=== PATIENT | male | born 1935 | race Caucasian/White ===

== ENCOUNTER 2023-07-19 08:25 | Inpatient (IN) | payer OTHER, SELFPAY ==
[2023-07-18] VITALS (16 sets, daily range): BP systolic 111–181; BP diastolic 52–108; BMI 27.2
--- NOTE | 2023-07-18 06:40 | ED.CVA ---
History of Present Illness
General
Chief Complaint: CVA/TIA Symptoms
Source: patient and ambulance crew
Time Seen by Provider: 07/18/23 06:38
Onset of Stroke Symptoms
Onset of symptoms known: No
Time pt last seen normal is known: Yes
Date last time pt seen normal: 07/17/23
Time last time pt seen normal: 22:00
History of Present Illness
History of Present Illness:
88-year-old male brought to the emergency room by paramedics because he is feeling dizzy, weak on the left side and noted a facial droop. Patient went to bed at 10 PM last night feeling his baseline. He woke up at 3 AM feeling the above symptoms.
He went back to bed and when he awoke again this morning noted the symptoms were still present. Patient does take Plavix but does not take other oral anticoagulants.
Phy Exam
Physical Exam
Physical Exam:
General: Awake, Alert, Oriented X3. No acute distress.
Vitals: unremarkable
Head: Atraumatic
Eyes: Pupils equal, EOMI
Throat: Airway intact, no exudates
Neck: Trachea midline
Lungs: Clear and equal b/l
Heart: Regular rate, no murmurs
Abd: Soft, Nontender, No pulsatile mass
Neuro:left facial droop,
Skin: Warm, dry, no rash
Extremities: pulses equal b/l, no edema
Scores
NIH Stroke Score
Level of Consciousness: 0 - Alert
LOC Questions: 0-Answers both correctly
LOC Commands: 0-Performs both correctly
Best Horizontal Gaze: 0-Normal
Visual Bautista: 0=Normal, no visual loss
Facial Palsy: 2=Partial paralysis
Motor - Right Arm: 0=No drift 10 seconds
Motor - Left Arm: 0=No drift 10 seconds
Motor - Right Le-No drift 5 seconds
Motor - Left Le-No drift 5 seconds
Limb Ataxia: 0-Absent
Sensation: 0-Normal
Best Language: 0-No aphasia
Dysarthria: 0-Normal
Extinction and Inattention: 0-No abnormality
Total Score:: 2
Course
Orders/Labs/Results
Orders:
Orders
07/18/23 06:38
CT Head W/o Cont STROKE ALERT Urgent
Comment:
Reason For Exam: left sided weakness
CT Head/Neck Ang STROKE ALERT Urgent
Reason For Exam: left sided weakness
07/18/23 06:43
Cardiac Monitoring- Treatment ONCE
07/18/23 06:44
Electrocardiogram (*1) Stat
Reason for Study: Other
Other Reason for Exam: neuro symptoms
EKG- Treatment ONCE
07/18/23 07:09
Basic Metabolic Panel Urgent
Complete Blood Count/With Diff Urgent
Troponin I Urgent
07/18/23 08:13
Notify MD As Directed
Notify physician if: once med rec is done. TY
07/18/23 08:33
Admit/Transfer Patient As Directed
Co-Sign Provider:
Level of Care: Observation services
Assign to:: Telemetry
Physician / Group: Hospitalist
Diagnosis: TIA CVA Symptoms
Reason for Telemetry: CVA/TIA
Date to Stop Telemetry: 07/21/23
Time to Stop Telemetry: 11:00
Code Status As Directed
Resuscitation Status: Do not resuscitate
Reached after discussion with pt or family/Healthcare POA: Yes
Physician note:: with son on speaker phone
07/18/23 08:34
DNR Bracelet Application ONCE
07/18/23 12:00
Troponin I Q6H
07/21/23 11:00
DC Protocol for Telemetry ONCE
Abnormal Lab Results
07/18/23 07/18/23
07:07 07:09
RBC 4.31 L 10^6/uL
(4.70-6.10)
MCH 31.3 H pg
(27.0-31.0)
Absolute Neuts (auto) 7.4 H 10^3/uL
(1.4-6.5)
Absolute Lymphs (auto) 0.4 L 10^3/uL
(1.2-3.4)
Neutrophils % 93.2 H %
(42.2-75.2)
Lymphocytes % 4.7 L %
(20.5-51.1)
Monocytes % 1.6 L %
(1.7-9.3)
Sodium 132 L mmol/L
(135-145)
Carbon Dioxide 20 L mmol/L
(22-30)
BUN 21 H mg/dl
(9-20)
Glucose 308 H mg/dl
(70-99)
Troponin I 0.056 H* ng/ml
POC Glucose 292 H mg/dl
(70-99)
07/18/23 07:09
07/18/23 07:09
Vital Signs
Initial and Last Documented VS:
Initial Vital Signs
BP
171/101
07/18/23 06:58
Last Documented Vital Signs
Temp Pulse Resp BP Pulse Ox
97.8 F 110 31 181/100 94
07/18/23 08:54 07/18/23 09:15 07/18/23 09:15 07/18/23 09:15 07/18/23 09:00
MDM/Problems Addressed
Differential Diagnosis Includes:
CVA, TIA, metabolic encephalopathy
MDM/Problems Addressed:
Patient presents with left facial droop which is evidently new. Time of onset is unknown. Patient has a head CT and a CTA which did not show any obvious new findings. Patient is not a candidate for TNK as he has arrived outside of the window. He
is not a candidate for intra-arterial therapy because his NIH score is less than 6. Patient will be hospitalized for supportive care. Patient was evaluated by neurology here in the emergency room.
Chronic conditions affecting care: HTN and Neurological disorder (Previous 'TIAs'.)
*Radiology
Radiology exam reviewed: radiology read reviewed
*Pulse Oximetry
Patient hypoxic: no
*EKG
Interpreted by ED Provider?: Yes
Heart Rate: 105
Rate: tachycardiac
Rhythm: sinus and sinus arrhythmia
QRS Pattern: right bundle branch block
Ischemia: non-specific ST changes
*Can Marker Interpretation
Rate: tachycardiac
Interpretation: abnormal
Rhythm: sinus tachycardia
*Critical Care Note
Total Time (30-74mins, 75-104mins- exclusive of procedures): 35 min
comment:
Critical care statement: A total of 35 minutes of critical care time was provided for this patient. This includes management of unstable vital signs, evaluation of the patient at bedside, reviewing the patient's pertinent medical records, discussion
with consultants, review of old EKGs and review of pertinent medical records. This time with separate from time utilized to perform the aforementioned documented procedures
ED Attending Note
-
Portions of this chart may have been created with voice recognition software.� Occasional wrong word or��sound alike� substitutions may have occurred due to the inherent limitations of voice recognition software.
Discharge Plan
Departure
Patient Disposition: Admit
Date of Disposition: 07/18/23
Time of Disposition: 07:57
Admit to: Telemetry
Presentation/result/management discussed w/ accepting MD/DO: Hospitalist
Condition: Fair
Discharge Problem:
Acute CVA (cerebrovascular accident)
Interventions
Interventions:
*Risk Screen - Suicide Last Done: 07/18/23 07:12
*General Assessment Last Done: 07/18/23 07:12
*Neglect/Abuse Screening Last Done: 07/18/23 07:12
ED- Fall Risk Assessment Last Done: 07/18/23 07:18
*ED COVID-19 Vaccine History Last Done: 07/18/23 07:18
ED- Pulmonary Assessment Last Done: 07/18/23 07:18
ED- Neurological Assessment Last Done: 07/18/23 07:18
ED- Cardiac Assessment Last Done: 07/18/23 07:18
ED Swallowing Screen Last Done: 07/18/23 09:17
[2023-07-18 07:09] LABS: Glucose - Point of Care 292 mg/dl (70-99)
[2023-07-18 07:21] LABS: % Basophils 0.1 % (0-2); % Immature Granulocytes 0.4 % (0-0.5); % Lymphocytes 4.7 % (20.5-51.1); % Monocytes 1.6 % (1.7-9.3); % Neutrophils 93.2 % (42.2-75.2); Absolute Lymphocytes 0.4 10^3/uL (1.2-3.4); Absolute Monocytes 0.1 10^3/uL (0.1-0.6); Absolute Neutrophils 7.4 10^3/uL (1.4-6.5); Hematocrit 39.3 % (39.0-52.0); Hemoglobin 13.5 g/dL (13.0-18.0); Mean Corp Hgb Conc. 34.4 g/dL (33.0-37.0); Mean Corpuscular Hgb 31.3 pg (27.0-31.0); Mean Corpuscular Volume 91.2 fL (80.0-94.0); Mean Platelet Volume 9.6 fL (7.4-10.4); Nucleated Red Blood Cells % 0 % (-); Platelet Count 158 10^3/uL (130-400); Red Blood Cell Count 4.31 10^6/uL (4.70-6.10); Red Cell Dist. Width 13.2 % (11.5-14.5); White Blood Cell Count 7.9 10^3/uL (4.8-10.8)
[2023-07-18 07:34] LABS: Blood Urea Nitrogen 21 mg/dl (9-20); Calcium 9.6 mg/dl (8.4-10.2); Carbon Dioxide 20 mmol/L (22-30); Chloride 99 mmol/L (98-107); Estimated Creatinine Clearance 68 ml/min; Glucose 308 mg/dl (70-99); Potassium 4.8 mmol/L (3.5-5.1); Sodium 132 mmol/L (135-145); eGFR > 60.00
[2023-07-18 07:48] LABS: Troponin I 0.056 ng/ml
--- NOTE | 2023-07-18 08:11 | HPS.HSE ---
Family Physician
-
Family Physician: Magdalena Noland
Chief Complaint
-
Weakness on the left side and dizziness
History of Present Illness
88-year-old male went to bed last night feeling good. Around 3 AM he woke up with dizziness and also weakness . Patient initially told the ER he had a left facial droop which is new for him. Also had some left-sided weakness. To me he states
that he has right-sided weakness which is not new. He went back to bed and woke up again today to still present. He takes aspirin and Plavix as outpatient. Patient denies any headache numbness or tingling. He has chronic neuropathy from diabetes.
Medical History
Past Medical History
Past Medical History: Reports Other
Additional Past Medical History:
History of TIAs, neuropathy, hypertension, diabetes, adjustment disorder with anxiety and depression, bilateral trochanteric bursitis-hips, PVD, insomnia, type 2 diabetes, benign prostatic hyperplasia, coronary artery disease, IBS with constipation
and diarrhea, chronic lymphedema lower extremities, hyperlipidemia, diverticulosis, Verdugo's esophagus, DDD-lumbar, CKD-stage unclear
Past Surgical History: Reports Other
Additional Past Surgical History:
Hernia surgery with mesh x 2 inguinal and abdominal, Linq monitor placement in 2016, right ectropion repair, stents in femoral arteries
Social History
Tobacco: Former Smoker
Alcohol: Occasional
Drug: None
Personal:
Living: Assisted Living
Family History
Family History: CAD (Father and mother. Mother in her 90s and father in his 80s.)
Allergies / Home Medications
Allergies reflects when Allergies were last updated in [facility].
Home Medications with original date entered in [facility]
Allergy/Medication List:
Home Medications
acetaminophen 500 mg tablet 1,000 mg PO TID PRN pain 07/18/23
alfuzosin 10 mg tablet,extended release 24 hr 10 mg PO DAILY 07/18/23
amlodipine 5 mg tablet 5 mg PO DAILY 07/18/23
aspirin 81 mg capsule 81 mg PO DAILY 07/18/23
benzonatate 100 mg capsule 100 mg PO TID PRN cough 07/18/23
cholecalciferol (vitamin D3) 250 mcg (10,000 unit) tablet 250 mcg PO DAILY 07/18/23
cilostazol 100 mg tablet 100 mg PO BID 07/18/23
clopidogrel 75 mg tablet 75 mg PO DAILY 07/18/23
enalapril maleate 20 mg tablet 20 mg PO DAILY 07/18/23
finasteride 5 mg tablet 5 mg PO DAILY 07/18/23
gabapentin 300 mg tablet 300 mg PO TID 07/18/23
hydrocortisone acetate 25 mg rectal suppository 25 mg TX DAILY 07/18/23
melatonin 5 mg tablet 5 mg PO HS PRN sleep 07/18/23
metformin 500 mg tablet,extended release 24hr (osmotic) 500 mg PO BID 07/18/23
metoprolol succinate 25 mg capsule sprinkle, ext. release 24 hr 25 mg PO DAILY 07/18/23
polyethylene glycol 3350 17 gram oral powder packet (Miralax) 8.5 g PO DAILY PRN constipation 07/18/23
repaglinide 0.5 mg tablet 1 mg PO TID 07/18/23
rosuvastatin 10 mg tablet 10 mg PO DAILY 07/18/23
vitamin C13-whfsd acid 1,000 mcg PO DAILY 07/18/23
Review of Systems
-
A 12 point ROS was completed and negative except as noted: Yes
Cardiac: Denies Chest Pain
Abdomen/GI: Denies Abdominal Pain
: Denies Flank Pain
Neurological: Reports Dizzy, Weakness and Numbness; Denies Headache
Physical Exam
Vital Signs
Vital Signs
Pulse Resp BP Pulse Ox
110 19 177/108 93
07/18/23 07:15 07/18/23 07:15 07/18/23 07:15 07/18/23 07:18
Physical Exam
General: Conversant
HEENT: Other (left parotid mass)
Respiratory: Clear
Cardiac: S1/S2, Regular Rhythm and Murmur (Systolic murmur at apex)
GI: Soft and Non Tender
Skin: Warm
Neuro: Awake and Alert; No No Motor Deficits (Mild weakness), Nonfocal/grossly intact (Mild weakness noted in the proximal muscles left arm, reflexes equal bilaterally) or Cranial Nerves Intact (Left facial droop noted)
Laboratory Results
-
07/18/23 07:09
07/18/23 07:09
Laboratory Results
Troponin I 0.056 ng/ml H* 07/18/23 07:09
Data Reviewed
-
Diagnostic Radiology: Report Reviewed by me (CT of the head-no acute changes. Moderate volume loss and moderate asymmetric leukoaraiosis in the areas of previous infarct.) and Other (CTA of the head and neck-vascular calcifications however less
than 50% stenosis of the ICA bilaterally. No focal stenosis or filling defect. There is a large oval enhancing mass in the left parotid gland indeterminate.)
Medical Tests (Nuc Med, Echo, EKG etc): Image Personally Visualized and interpreted (Sinus tachycardia, left atrial enlargement, left axis deviation, right bundle branch block, septal infarct age undetermined)
Impression/Plan
-
IMPRESSION/PLAN:
# Dizziness with left facial droop
Patient has a history of TIAs
On aspirin and Plavix-continue
Continue rosuvastatin
Out of the window for tPA
Admit to telemetry-monitor on telemetry
CTA head and neck noted with no acute changes or stenosis
Neurology evaluated in the ER
Admitted for stroke workup
MRI Brain with out contrast
If positive check echo
PT OT and speech evaluations
NIH and neurochecks
# Mildly elevated troponin-patient denies any chest pain
History of coronary artery disease-details unclear
Continue aspirin and statin
Follow troponin
# Mild hyponatremia-likely secondary to elevated sugar
Follow
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
# Diabetes-continue repaglinide
Hold metformin with Contrast
Accu-Cheks and sliding scale
# Peripheral vascular disease-aspirin Plavix statin and also on cilostazol
History of femoral artery stents
# Chronic lower extremity edema-compression stockings
# Hypertension-hold amlodipine, enalapril, metoprolol in the setting of stroke
Permissive hypertension for 24 hours
# Prostate disease-BPH per previous history
Continue finasteride, alfuzosin or equivalent
# Neuropathy-likely diabetic
On gabapentin
# Hyperlipidemia-continue statin
# CKD-stage unclear
GFR over 60 now
# Adjustment disorder with anxiety and depression
# Bilateral trochanteric bursitis-hips
DDD-lumbar
# Insomnia -Melatonin
# IBS with constipation and diarrhea
# Diverticulosis
# Verdugo's esophagus- Add PPI
# DVT prophylaxis-Lovenox
# DNR status per discussion with patient. Son was on the speaker phone
Discussed with ER nurse and attending
Discussed with patient's son from patient's phone in the room.
Time spent 75 min getting records , reviewing seeing patient , discussion with family and providers.
Patient has never been to this hospital before.
--- NOTE | 2023-07-18 09:48 | CON.NEURO ---
Consultation
Order
Date of Consultation: 07/18/23
Reason for Consult: Stroke alert
Prehospital notification: 6:23 am
CC: Dizziness
HPI: This is an 88-year-old right-handed man who presented to [facility] on July 18, 2023 with dizziness. According to the patient he woke up around 3 AM today with sensation of spinning and transient left sided weakness. The
dizziness is worse with sitting up and not associated nausea, emesis, ear pain, sensory, visual or speech deficits. Patient states that he had similar symptoms in the past lasted for several hours. Mr. Palomino admits to chronic bilateral tinnitus
as well as hearing impairment. He recalls history of stroke with residual mild right hemiparesis. Has reportedly has been taking aspirin 'sometimes '. Last time seen in usual state of health�midnight.
ER VS: 171/101, 106, afebrile
EKG-sinus tachycardia, �QTc Int : 510 ms
Labs: glucose-308, normal WBCs, creatinine
CT head-chronic BL EC and BG infarcts, moderate volume loss and moderate asymmetric leukoaraiosis.
CTA head/neck-neck no hemodynamically significant stenosis, enhancing mass in the left parotid gland.
PDMP:no Rexed meds
PMH stroke, HTN, DLP, DM, polyneuropathy, vitamin D deficiency, ambulatory dysfunction, BPH
PSH: Bilateral cataract surgery, umbilical hernia repair
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
FH: Not contributory to current presentation
All:NKDA
ROS:Constitutional: Negative. Negative for chills, fever and unexpected weight change.
HENT: Positive for dizziness, impaired hearing, bilateral tinnitus
Eyes: Negative. Negative for photophobia, pain and visual disturbance.
Respiratory: Negative for cough, choking and shortness of breath.
Cardiovascular: Negative for chest pain, palpitations and leg swelling.
Gastrointestinal: Negative for abdominal pain and vomiting.
Endocrine: Negative. Negative for cold intolerance.
Genitourinary: Negative for dysuria, flank pain and urgency.
Musculoskeletal: Negative for back pain, gait problem, neck pain and neck stiffness.
Skin: Negative for rash.
Allergic/Immunologic: Negative. Negative for immunocompromised state.
Neurological: Positive for imbalance, distal paresthesias, mild right-sided weakness.
Psychiatric/Behavioral: Negative for behavioral problems, confusion and hallucinations.
General: Well developed. In no acute distress.
Cardio: Regular rate and rhythm without murmur. Extremities are without cyanosis or edema.
Neuro:
Mental Status: Alert, oriented to person, place, and date. Normal attention and recall. Good fund of knowledge. Follows complex requests across the midline. Comprehension, naming, and repetition intact. Immediate and delayed recall 3/3.
Cranial Nerves: . Pupils are equally round, surgical. EOMs full. Visual mcdowell full to confrontation. No ptosis. No nystagmus. V1-V3 intact to light touch and pinprick bilaterally, symmetric. Face symmetric. Impaired hearing AU. The palate
elevated well. SCMs and traps 5/5. Tongue midline. No dysarthria. Mild dysphonia(chronic)
Motor: Increased motor tone in lower extremities. No pronator or arm drift. Strength 5/5 throughout. No clonus.
Reflexes: 2+ throughout the upper extremities and knees. 2/2 in AJs. Plantar responses flexor bilaterally.
Sensory: Reduced vibration at the toes
Coordination: No dysmetria or tremor.
Gait: deferred
Assessment and Plan:
I. TIA
II. Chronic bilateral basal ganglia infarcts
III. Left parotid gland mass
IV. Probable peripheral vertigo
-Continue Telemetry monitoring.
-Aspiration precautions.
-Cautious lowering of BP by approximately 15 % during the first 24 hours is SBP >220 mmHg or diastolic blood pressure >120 mmHg;
-TTE with bubble studies, if unremarkable-please proceed with YUVAL.
-Continue ASA 81 mg QD and Plavix 75 mg QD
-Lipitor 40 mg QHS.
-Meclizine 25 mg every 8 hours as needed
-TTE;
-Holter monitoring
-Please check HbA1C, LDL.
-Brain MRI without
-ENT consult
-PT.
-DVT prophylaxis.
I personally reviewed all radiology and labs along with past medical records pertinent to current medical problems. Total time spent in patient care is 60 minutes.
Thank you for allowing us to participate in the care of this patient. We will continue to follow. Please do not hesitate to contact us with any questions or concerns.
Subjective/Objective
Subjective Data
Date of Service: July 18, 2023
Objective Data
Vital Signs
Temp Pulse Resp BP Pulse Ox
36.6 C 93 13 168/96 94
07/18/23 08:54 07/18/23 09:30 07/18/23 09:30 07/18/23 09:30 07/18/23 09:00
Lab Results
07/18/23 07:09
07/18/23 07:09
Sodium 132 mmol/L (135-145) L 07/18/23 07:09
Potassium 4.8 mmol/L (3.5-5.1) 07/18/23 07:09
BUN 21 mg/dl (9-20) H 07/18/23 07:09
Glucose 308 mg/dl (70-99) H 07/18/23 07:09
Calcium 9.6 mg/dl (8.4-10.2) 07/18/23 07:09
Medications
-
Active Medications
Generic Name Dose Route Start Last Admin
Trade Name Freq PRN Reason Stop Dose Admin
Acetaminophen 650 mg 07/18/23 09:48
Acetaminophen 650 Mg Rectal Suppository RECTAL 08/15/23 09:47
Q4HPRN PRN
RIVERA, mild pain, or temp >100.4F
Acetaminophen 650 mg 07/18/23 09:48
Acetaminophen 325 Mg Tablet PO 08/15/23 09:47
Q4HPRN PRN
RIVERA, mild pain, or temp >100.4F
Acetaminophen 1,000 mg 07/18/23 09:48
Acetaminophen 500 Mg Tablet PO 08/15/23 09:47
TID PRN
pain
Aspirin 81 mg 07/19/23 08:00
Aspirin 81 Mg Chewable Tablet PO 08/16/23 07:59
DAILY RASHIDA
Cilostazol 100 mg 07/18/23 09:48
Cilostazol 100 Mg Tablet PO 08/15/23 09:47
BID RASHIDA
Clopidogrel Bisulfate 75 mg 07/18/23 09:48
Clopidogrel 75 Mg Tablet PO 08/15/23 09:47
DAILY RASHIDA
Dextrose 12.5 grams 07/18/23 09:48
Dextrose 50% (0.5 Grams/Ml) 50 Ml Syringe IV 08/15/23 09:47
[id number] PRN
hypoglycemia
Protocol
Enoxaparin Sodium 40 mg 07/18/23 18:00
Enoxaparin Sodium 40 Mg/0.4 Ml Syringe SC 08/15/23 17:59
QPM RASHIDA
Finasteride 5 mg 07/18/23 09:48
Finasteride 5 Mg Tablet PO 08/15/23 09:47
DAILY RASHIDA
Glucagon 1 mg 07/18/23 09:48
Glucagon 1 Mg Vial IM 08/15/23 09:47
PRN PRN
hypoglycemia
Protocol
Hydrocortisone Acetate 25 mg 07/18/23 09:48
Anusol Hc 25 Mg Rectal Suppository RECTAL 08/15/23 09:47
DAILY RASHIDA
Insulin Aspart 0 units 07/18/23 11:30
Insulin Aspart Low Resistance 300 Units/3 Ml Pen.Injctr SC 08/15/23 11:29
AC RASHIDA
Protocol
Melatonin 5 mg 07/18/23 09:48
Melatonin 5 Mg Tablet PO 08/15/23 09:47
HS PRN
sleep
Non-Formulary Medication 10 mg 07/18/23 09:48
Alfuzosin PO 08/15/23 09:47
DAILY RASHIDA
Non-Formulary Medication 81 mg 07/18/23 09:48
Aspirin PO 08/15/23 09:47
DAILY RASHIDA
Non-Formulary Medication 300 mg 07/18/23 16:00
Gabapentin PO 08/15/23 15:59
TID RASHIDA
Non-Formulary Medication 250 mcg 07/19/23 08:00
Cholecalciferol (Vitamin D3) PO 08/16/23 07:59
DAILY RASHIDA
Polyethylene Glycol 8.5 grams 07/18/23 09:48
Polyethylene Glycol Powder 17 Grams Packet PO 08/15/23 09:47
DAILY PRN
constipation
Repaglinide 1 mg 07/18/23 16:00
Repaglinide 0.5 Mg Tablet PO 08/15/23 15:59
TID RASHIDA
Rosuvastatin Calcium 10 mg 07/18/23 09:48
Rosuvastatin (Crestor) 10 Mg Tablet PO 08/15/23 09:47
DAILY RASHIDA
Home Medications
Medication Instructions Recorded
acetaminophen 500 mg tablet 1,000 mg PO TID PRN pain 07/18/23
alfuzosin 10 mg tablet,extended 10 mg PO DAILY 07/18/23
release 24 hr
amlodipine 5 mg tablet 5 mg PO DAILY 07/18/23
aspirin 81 mg capsule 81 mg PO DAILY 07/18/23
benzonatate 100 mg capsule 100 mg PO TID PRN cough 07/18/23
cholecalciferol (vitamin D3) 250 250 mcg PO DAILY 07/18/23
mcg (10,000 unit) tablet
cilostazol 100 mg tablet 100 mg PO BID 07/18/23
clopidogrel 75 mg tablet 75 mg PO DAILY 07/18/23
enalapril maleate 20 mg tablet 20 mg PO DAILY 07/18/23
finasteride 5 mg tablet 5 mg PO DAILY 07/18/23
gabapentin 300 mg tablet 300 mg PO TID 07/18/23
hydrocortisone acetate 25 mg 25 mg SD DAILY 07/18/23
rectal suppository
melatonin 5 mg tablet 5 mg PO HS PRN sleep 07/18/23
metformin 500 mg tablet,extended 500 mg PO BID 07/18/23
release 24hr (osmotic)
metoprolol succinate 25 mg capsule 25 mg PO DAILY 07/18/23
sprinkle, ext. release 24 hr
polyethylene glycol 3350 17 gram 8.5 g PO DAILY PRN constipation 07/18/23
oral powder packet (Miralax)
repaglinide 0.5 mg tablet 1 mg PO TID 07/18/23
rosuvastatin 10 mg tablet 10 mg PO DAILY 07/18/23
vitamin I18-axuro acid 1,000 mcg PO DAILY 07/18/23
Vital Signs and Labs
-
Vital Signs and Labs:
Vital Signs
Temp Pulse Resp BP Pulse Ox
36.6 C 93 13 168/96 94
07/18/23 08:54 07/18/23 09:30 07/18/23 09:30 07/18/23 09:30 07/18/23 09:00
Lab Results
07/18/23 07:09
07/18/23 07:09
Sodium 132 mmol/L (135-145) L 07/18/23 07:09
Potassium 4.8 mmol/L (3.5-5.1) 07/18/23 07:09
BUN 21 mg/dl (9-20) H 07/18/23 07:09
Glucose 308 mg/dl (70-99) H 07/18/23 07:09
Calcium 9.6 mg/dl (8.4-10.2) 07/18/23 07:09
Home Medications
-
Home Medications
acetaminophen 500 mg tablet 1,000 mg PO TID PRN pain 07/18/23
alfuzosin 10 mg tablet,extended release 24 hr 10 mg PO DAILY 07/18/23
amlodipine 5 mg tablet 5 mg PO DAILY 07/18/23
aspirin 81 mg capsule 81 mg PO DAILY 07/18/23
benzonatate 100 mg capsule 100 mg PO TID PRN cough 07/18/23
cholecalciferol (vitamin D3) 250 mcg (10,000 unit) tablet 250 mcg PO DAILY 07/18/23
cilostazol 100 mg tablet 100 mg PO BID 07/18/23
clopidogrel 75 mg tablet 75 mg PO DAILY 07/18/23
enalapril maleate 20 mg tablet 20 mg PO DAILY 07/18/23
finasteride 5 mg tablet 5 mg PO DAILY 07/18/23
gabapentin 300 mg tablet 300 mg PO TID 07/18/23
hydrocortisone acetate 25 mg rectal suppository 25 mg SD DAILY 07/18/23
melatonin 5 mg tablet 5 mg PO HS PRN sleep 07/18/23
metformin 500 mg tablet,extended release 24hr (osmotic) 500 mg PO BID 07/18/23
metoprolol succinate 25 mg capsule sprinkle, ext. release 24 hr 25 mg PO DAILY 07/18/23
polyethylene glycol 3350 17 gram oral powder packet (Miralax) 8.5 g PO DAILY PRN constipation 07/18/23
repaglinide 0.5 mg tablet 1 mg PO TID 07/18/23
rosuvastatin 10 mg tablet 10 mg PO DAILY 07/18/23
vitamin S36-dxbkd acid 1,000 mcg PO DAILY 07/18/23
Medications
-
Medications:
Generic Name Dose Route Start Last Admin
Trade Name Freq PRN Reason Stop Dose Admin
Acetaminophen 650 mg 07/18/23 09:48
Acetaminophen 650 Mg Rectal Suppository RECTAL 08/15/23 09:47
Q4HPRN PRN
RIVERA, mild pain, or temp >100.4F
Acetaminophen 650 mg 07/18/23 09:48
Acetaminophen 325 Mg Tablet PO 08/15/23 09:47
Q4HPRN PRN
RIVERA, mild pain, or temp >100.4F
Acetaminophen 1,000 mg 07/18/23 09:48
Acetaminophen 500 Mg Tablet PO 08/15/23 09:47
TID PRN
pain
Aspirin 81 mg 07/19/23 08:00
Aspirin 81 Mg Chewable Tablet PO 08/16/23 07:59
DAILY RASHIDA
Cilostazol 100 mg 07/18/23 09:48
Cilostazol 100 Mg Tablet PO 08/15/23 09:47
BID RASHIDA
Clopidogrel Bisulfate 75 mg 07/18/23 09:48
Clopidogrel 75 Mg Tablet PO 08/15/23 09:47
DAILY RASHIDA
Dextrose 12.5 grams 07/18/23 09:48
Dextrose 50% (0.5 Grams/Ml) 50 Ml Syringe IV 08/15/23 09:47
[id number] PRN
hypoglycemia
Protocol
Enoxaparin Sodium 40 mg 07/18/23 18:00
Enoxaparin Sodium 40 Mg/0.4 Ml Syringe SC 08/15/23 17:59
QPM RASHIDA
Finasteride 5 mg 07/18/23 09:48
Finasteride 5 Mg Tablet PO 08/15/23 09:47
DAILY RASHIDA
Glucagon 1 mg 07/18/23 09:48
Glucagon 1 Mg Vial IM 08/15/23 09:47
PRN PRN
hypoglycemia
Protocol
Hydrocortisone Acetate 25 mg 07/18/23 09:48
Anusol Hc 25 Mg Rectal Suppository RECTAL 08/15/23 09:47
DAILY RASHIDA
Insulin Aspart 0 units 07/18/23 11:30
Insulin Aspart Low Resistance 300 Units/3 Ml Pen.Injctr SC 08/15/23 11:29
AC RASHIDA
Protocol
Melatonin 5 mg 07/18/23 09:48
Melatonin 5 Mg Tablet PO 08/15/23 09:47
HS PRN
sleep
Non-Formulary Medication 10 mg 07/18/23 09:48
Alfuzosin PO 08/15/23 09:47
DAILY RASHIDA
Non-Formulary Medication 81 mg 07/18/23 09:48
Aspirin PO 08/15/23 09:47
DAILY RASHIDA
Non-Formulary Medication 300 mg 07/18/23 16:00
Gabapentin PO 08/15/23 15:59
TID RASHIDA
Non-Formulary Medication 250 mcg 07/19/23 08:00
Cholecalciferol (Vitamin D3) PO 08/16/23 07:59
DAILY RASHIDA
Polyethylene Glycol 8.5 grams 07/18/23 09:48
Polyethylene Glycol Powder 17 Grams Packet PO 08/15/23 09:47
DAILY PRN
constipation
Repaglinide 1 mg 07/18/23 16:00
Repaglinide 0.5 Mg Tablet PO 08/15/23 15:59
TID RASHIDA
Rosuvastatin Calcium 10 mg 07/18/23 09:48
Rosuvastatin (Crestor) 10 Mg Tablet PO 08/15/23 09:47
DAILY RASHIDA
[2023-07-18 13:00] LABS: Troponin I 0.796 ng/ml
--- NOTE | 2023-07-18 14:37 | PTOTSP ---
Clinical Swallow Evaluation
88M p/w a mildly impaired oropharyngeal swallow in the presence of left sided facial and lingual weakness with coughing on consecutive sips of thin liquids this date. Aspiration risk is increased per MRI positive for small acute infarct in the right
middle cerebellar peduncle. No prior dysphagia history per chart review or patient report. Recommend trial of regular solids and thin liquids (SINGLE SIPS) with GRADUATE INTERN service to follow up to assess tolerance. Communicated findings with patient,
spouse, son, MD, and RN.
Recommend:
1. Regular textures (IDDSI 7), thin liquids (IDDSI 0) SINGLE SIPS ONLY
2. Medications as tolerated
3. Aspiration and reflux precautions
4. Safe swallowing strategies: chew well, small bites, single sips
5. VSE premature at this time; however, might be indicated to r/o silent aspiration if s/s arise
6. GRADUATE INTERN service to follow up at the acute care level to assess diet tolerance and provide dysphagia treatment as indicated
[2023-07-18 14:39] LABS: Glucose - Point of Care 240 mg/dl (70-99)
[2023-07-18] MEDS: PLAVIX 75 MG PO (14:52)
[2023-07-18] MEDS: NEURONTIN 600 MG PO ×2 (14:52→21:09)
[2023-07-18] MEDS: NOVOLOG FLEXPEN-LOW RESISTANCE 2 UNITS SC (14:52)
[2023-07-18] MEDS: LOVENOX 40 MG SC (17:19)
[2023-07-18] MEDS: FLOMAX 0.400000000000000022 MG PO (17:19)
[2023-07-18] MEDS: PRANDIN 0.5 MG PO (17:19)
[2023-07-18] MEDS: LIPITOR 40 MG PO (17:19)
[2023-07-18 17:36] LABS: Glucose - Point of Care 194 mg/dl (70-99)
[2023-07-18] MEDS: NOVOLOG FLEXPEN-LOW RESISTANCE 1 UNITS SC (17:37)
[2023-07-18] MEDS: PLETAL 100 MG PO (21:09)
[2023-07-18] MEDS: PROSCAR 5 MG PO (21:09)
[2023-07-18 21:26] LABS: Glucose - Point of Care 198 mg/dl (70-99)
[2023-07-19] VITALS (8 sets, daily range): BP systolic 111–152; BP diastolic 55–84; PULSE 95; O2SAT 94; BMI 26.3
[2023-07-19 05:11] LABS: Hematocrit 35.6 % (39.0-52.0); Hemoglobin 12.5 g/dL (13.0-18.0); Mean Corp Hgb Conc. 35.1 g/dL (33.0-37.0); Mean Corpuscular Hgb 31.2 pg (27.0-31.0); Mean Corpuscular Volume 88.8 fL (80.0-94.0); Mean Platelet Volume 9.7 fL (7.4-10.4); Platelet Count 166 10^3/uL (130-400); Red Blood Cell Count 4.01 10^6/uL (4.70-6.10); Red Cell Dist. Width 13.3 % (11.5-14.5); White Blood Cell Count 11.6 10^3/uL (4.8-10.8)
[2023-07-19 06:14] LABS: Blood Urea Nitrogen 35 mg/dl (9-20); Calcium 9.6 mg/dl (8.4-10.2); Carbon Dioxide 25 mmol/L (22-30); Chloride 101 mmol/L (98-107); Estimated Creatinine Clearance 61 ml/min; Glucose 116 mg/dl (70-99); HDL Cholesterol 78 mg/dl; LDL Cholesterol, Calculated 44 mg/dl; Potassium 4.2 mmol/L (3.5-5.1); Sodium 135 mmol/L (135-145); Total Cholesterol 136 mg/dl (50-199); Triglyceride 71 mg/dl (10-149); Very Low Density Lipoprotein 14 mg/dl (0-30); eGFR > 60.00
[2023-07-19 07:45] LABS: Glucose - Point of Care 110 mg/dl (70-99)
--- NOTE | 2023-07-19 07:58 | W.PN.NEURO.1 ---
Today's Communication / Plan
-
-Goal normotension and normoglycemia
-Would continue the existing antiplatelet regimen aspirin and clopidogrel
-Agree with cardiology given the increase in troponin, patient denying chest pain, dyspnea, dizziness, palpitations and chest pressure to me
-Continue current statin dose LDLs less than 70
-Check transthoracic echocardiogram continue monitor on cardiac telemetry
-Physical therapy occupational therapy evaluations
-PRN meclizine 12.5 mg q8hr for symptomatic control of dizziness from the stroke which will likely improve with time, monitor for drowsiness
Will follow
Neuro Assessment/Plan
Assessment
88-year-old male presenting with sensation of spinning and transient left-sided weakness
Found to have small right-sided middle cerebellar peduncle acute ischemic infarct
CTA of the head and neck does not show any significant intracranial or cervical artery stenosis or occlusion, mild calcification of the cavernous segment of the intracranial carotid bilaterally without any significant hemodynamic stenosis
LDL is 44
Past medical history of hypertension and diabetes
Stroke etiology very likely due to small vessel disease given the location of infarct, existing risk factors of hypertension and diabetes, absence of large vessel atherosclerosis on CTA of the head and neck
Parotid mass seen on imaging brings possibility of acquired hypercoaguability of malignancy
Subjective/Objective
Subjective Data
Date of Service: July 19, 2023
Objective Data
Vital Signs
Temp Pulse Resp BP Pulse Ox
98.6 F 97 18 136/79 93
07/19/23 07:00 07/19/23 07:00 07/19/23 07:00 07/19/23 07:00 07/19/23 07:00
Lab Results
07/19/23 05:00
07/19/23 05:00
Sodium 135 mmol/L (135-145) 07/19/23 05:00
Potassium 4.2 mmol/L (3.5-5.1) 07/19/23 05:00
BUN 35 mg/dl (9-20) H 07/19/23 05:00
Glucose 116 mg/dl (70-99) H 07/19/23 05:00
Calcium 9.6 mg/dl (8.4-10.2) 07/19/23 05:00
LDL Cholesterol, Calc 44 mg/dl 07/19/23 05:00
Patient Allergies
No Known Allergies Allergy (Unverified 07/18/23 11:53)
[2023-07-19] MEDS: NOVOLOG FLEXPEN-LOW RESISTANCE SC (08:23)
[2023-07-19] MEDS: NEURONTIN 600 MG PO ×3 (08:23→21:25)
[2023-07-19] MEDS: LOW STRENGTH ASPIRIN 81 MG PO (08:23)
[2023-07-19] MEDS: PLAVIX 75 MG PO (08:23)
[2023-07-19] MEDS: VITAMIN D3 (cholecalciferol) 25 MCG PO (08:23)
[2023-07-19] MEDS: PLETAL 100 MG PO ×2 (08:24→21:25)
[2023-07-19 09:10] LABS: Glycohemoglobin (HgbA1c) 7.7 % (4.0-5.6)
--- NOTE | 2023-07-19 09:25 | CARDSERVLU ---
Echocardiogram with Lumason completed after protocol screening completed. Allergies verified.
Patent IV site: __rt wrist___
IV site flushed with 0.9% NaCl pre and post administration.
Diluted bolus method utilized to enhance visualization of ventricular link.
Total volume given: __3.5_ mL
Patient tolerated all procedures well without complications.
--- NOTE | 2023-07-19 09:36 | W.PN.HOSP.TC ---
Addendum entered and electronically signed by Nic Crawford MD 07/19/23 13:59:
Addendum
He is past 24 hours of permissive hypertension
will place back on Toprol and enalapril
Troponin is trending down, he continues to be chest pain free.
End
Original Note:
Today's Communication/Plan
-
.
Assessment / Plan
Assessment / Plan
Physical Exam
General: Conversant
HEENT: Other (left parotid mass)
Respiratory: Clear
Cardiac: S1/S2, Regular Rhythm and Murmur (Systolic murmur at apex)
GI: Soft and Non Tender
Skin: Warm
No Lombardo, no hematuria
Psych: no agitation
Neuro: Awake and Alert; No No Motor Deficits (Mild weakness), Nonfocal/grossly intact (Mild weakness noted in the proximal muscles left arm, reflexes equal bilaterally) or Cranial Nerves Intact (Left facial droop noted).
# Small acute infarct in the right middle cerebellar peduncle measuring 4 mm.
He presented with dizziness with left facial droop
Patient has a history of TIAs
On aspirin and Plavix-continue
Continue rosuvastatin
He was out of the window for tPA
c/w monitor on telemetry
CTA head and neck noted with no acute changes or stenosis
PT OT and speech evaluations
NIH and neuro-checks
Appreciate neurology help
# Upward trending of elevated troponin-patient denies any chest pain
History of coronary artery disease-He sees Dr Edmonds at [facility] and refused to go there and decided to come to
Continue aspirin and statin
f/w echo. Get records
Stat EKG
Appreciate cardiology help
# Mild hyponatremia-likely secondary to elevated sugar
Follow
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
# Diabetes-continue repaglinide
Hold metformin with Contrast
HGB A1C 7.7
Accu-Cheks and sliding scale
# Peripheral vascular disease-aspirin Plavix statin and also on cilostazol
History of femoral artery stents
# Chronic lower extremity edema-compression stockings
# Hypertension-hold amlodipine, enalapril, metoprolol in the setting of stroke
Permissive hypertension for 24 hours
# Prostate disease-BPH per previous history
Continue finasteride, alfuzosin or equivalent
# Neuropathy-likely diabetic
On gabapentin
# Hyperlipidemia-continue statin
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
GFR over 60 now
NO flank pain
# Adjustment disorder with anxiety and depression
# Bilateral trochanteric bursitis-hips
DDD-lumbar
# Insomnia -Melatonin
# IBS with constipation and diarrhea
# Diverticulosis
# Verdugo's esophagus- Add PPI
# DVT prophylaxis-Lovenox
# DNR status per discussion with patient.� Son was on the speaker phone
Total time spent to see the patient, examine the patient on the floor, review data and lab results, discuss treatment plan with patient, nursing staff around 55 minutes
Anticipated Discharge: 24 - 48 hours
Subjective/Interval History
-
Date of Service: July 19, 2023
he feels dizzy , no chest pain
Objective Data
-
Labs:
Laboratory Results
07/19/23
05:00
WBC 11.6 H
Hgb 12.5 L
Hct 35.6 L
Plt Count 166
Sodium 135
Potassium 4.2
Chloride 101
Carbon Dioxide 25
BUN 35 H
Creatinine 1.0
Glucose 116 H
Calcium 9.6
Vital Signs:
Vital Signs
Temp Pulse Resp BP Pulse Ox
98.6 F 97 18 136/79 93
07/19/23 07:00 07/19/23 07:00 07/19/23 07:00 07/19/23 07:00 07/19/23 07:00
I&O
07/18/23 07/19/23 07/20/23
06:59 06:59 06:59
Intake Total 680 / 680
Output Total 1300 / 1300
Balance -620 / -620
--- NOTE | 2023-07-19 09:46 | CON.CAR ---
Addendum entered and electronically signed by Chon Mondragon MD 07/19/23 14:09:
I saw and examined the patient.
The LAYDOWN MACHINE OPERATOR or PA's note was reviewed and I agree with the note.
Comment: General: Well developed, well nourished in NAD.
Neck: Supple, no JVD, HJR, carotids +2 B/L, no bruits bilaterally.
Heart: Non displaced PMI, RRR, no murmurs, No S3, S4, no rubs.
Lungs: Clear to auscultation bilaterally, no wheeze, rhonchi, rubs bilaterally,
normal expiratory phase.
Abdomen: Normal bowel sounds, soft, non-tender, non-distended.
Extremities: No clubbing, cyanosis or edema bilaterally.
Neuro: Grossly nonfocal, awake, alert and oriented x3.
Ramón has a history of TIA, AAA stent graft, hypertension, hyperlipidemia, diabetes followed at [facility] with Dr. Edmonds. He presented with dizziness. He is felt to have a CVA. Initial troponin was 0.056 and increased to
3.77. He denies chest pain or shortness of breath. ECG with right bundle branch block and lateral ST-T wave changes.
Etiology of troponin elevation unclear. May be a non-MO troponin elevation. Check echocardiogram. Continue Toprol, aspirin, Plavix. If echocardiogram is unremarkable consider outpatient stress testing
Original Note:
Consultation
Consultation Request
Date/Time Consultation Requested: 07/19/23 at 0933
Date/Time Consultation Performed: 07/19/23 at 1015
Requesting Provider: Dr. Crawford
Performing Provider: Dr. Mondragon
Reason for Consultation: Elevated Troponin, possible CVA
Medical History
-
History of Present Illness:
Patient came to [facility] yesterday with facial droop and is now admitted with CVA and cardiology has been consulted for elevated Troponin. Patient lives with his in the independent living section of [facility], but previously lived in [place].
Patient says that while he lived in [place] he had 2 TIAs and had a Linq monitor placed in 2016, but no arrhythmia was ever recorded. Patient says that even though he was told that he had TIAs in the past that he felt he had residual right sided
weakness that was still present. Patient has a h/o AAA treated with a stent graft and a h/o peripheral stents, but details are not clear. Called his primary venetian blind installer and obtained records. EF was stable by last echo. No reported h/o atrial
arrhythmia. No reported h/o CAD and no previous stress testing listed. Patient denies chest pain. Initial Troponin was 0.056 and then peaked at 3.77. ECG with lateral ST changes.
PMH:
h/o TIA
h/o AAA stent graft
HTN
Hyperlipidemia
DM 2
IC RBBB
Past Medical History
Past Medical History: Other (in HPI)
Past Surgical History: Cardiac (previous Linq in 2016 while living in [facility] PAD with SFA stents dates unknown) and Other (hernia repair 2019)
Social History
Tobacco: Former Smoker
Alcohol: Occasional
Drug: None
Personal:
Family History
Family History: CAD
Allergies / Home Medications
Allergy/AdvReac Type Severity Reaction Status Date / Time
No Known Allergies Allergy Unverified 07/18/23 11:53
Medication Instructions Recorded Confirmed Type
alfuzosin 10 mg tablet,extended 10 mg PO QPM prostate 07/18/23 07/18/23 History
release 24 hr
amlodipine 5 mg tablet 5 mg PO DAILY Blood Pressure 07/18/23 07/18/23 History
aspirin 81 mg capsule 81 mg PO DAILY Blood Clot 07/18/23 07/18/23 History
Prevention/Tx
cholecalciferol (vitamin D3) 25 25 mcg PO DAILY Supplement 07/18/23 07/18/23 History
mcg (1,000 unit) tablet
cilostazol 100 mg tablet 100 mg PO BID Blood Clot 07/18/23 07/18/23 History
Prevention/Tx
clopidogrel 75 mg tablet 75 mg PO DAILY Blood Clot 07/18/23 07/18/23 History
Prevention/Tx
cyanocobalamin (vitamin B-12) 1,000 mcg PO DAILY Supplement 07/18/23 07/18/23 History
1,000 mcg tablet
dicyclomine 10 mg capsule 10 mg PO Q6H PRN irritable bowel 07/18/23 07/18/23 History
enalapril maleate 20 mg tablet 20 mg PO BID Blood Clot 07/18/23 07/18/23 History
Prevention/Tx
finasteride 5 mg tablet 5 mg PO HS prostate 07/18/23 07/18/23 History
gabapentin 300 mg capsule 600 mg PO TID neuropathy 07/18/23 07/18/23 History
lactobacillus combination no.4 3 3,000 mmu cells PO DAILY probiotic 07/18/23 07/18/23 History
billion cell capsule (Probiotic)
metformin 500 mg tablet,extended 500 mg PO BID@0800,1700 Diabetes 07/18/23 07/18/23 History
release 24hr (osmotic)
metoprolol succinate 25 mg 25 mg PO DAILY Heart 07/18/23 07/18/23 History
tablet,extended release 24 hr Disease/Condition
pantoprazole 40 mg tablet,delayed 40 mg PO DAILY stomach acid 07/18/23 07/18/23 History
release (Protonix)
repaglinide 0.5 mg tablet 1 mg PO DAILY@1700 Diabetes 07/18/23 07/18/23 History
rosuvastatin 10 mg tablet 10 mg PO HS High Cholesterol 07/18/23 07/18/23 History
Review of Systems
-
History Source: Patient
All other systems: Negative unless noted
Physical Exam
Vital Signs
Temp Pulse Resp BP Pulse Ox
98.6 F 97 18 136/79 93
07/19/23 07:00 07/19/23 07:00 07/19/23 07:00 07/19/23 07:00 07/19/23 07:00
GEN: NAD. AAOx3
HEENT: subtle left sided facial droop with some dysphasia/mumbling, EOMI
LUNGS: Clear anterolaterally with good inspiratory effort. No wheeze or rales
CV: Reg, S1/S2, no murmur
ABD: soft, BS+, NT, ND
EXT: No clubbing, cyanosis, lesions or edema B/L
NEURO: Gross non-focal
SKIN: Warm, dry and pink. No rash
Lab Results
07/19/23 05:00
07/19/23 05:00
Troponin I 3.770 ng/ml H* 07/19/23 07:21
Impression / Plan
-
PCP: Dr. Magdalena Noland at [facility]
Cardiology: Dr. Igor Edmonds
Impression:
Dizzy and left sided facial droop 07/18/23
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
h/o TIA
Elevated Troponin
Abnormal ECG with lateral ST changes
Parotid mass
h/o AAA stent graft
HTN
Hyperlipidemia
DM 2
IC RBBB
Echo 07/22/22: EF 65-70, grade I diastolic dysfunction, normal RV size and function, no /AI, minimal MR
Plan:
-Patient came to [facility] yesterday with facial droop and is now admitted with CVA and cardiology has been consulted for elevated Troponin. Patient lives with his in the independent living section of [facility], but previously lived in [place].
Patient says that while he lived in [place] he had 2 TIAs and had a Linq monitor placed in 2016, but no arrhythmia was ever recorded. Patient says that even though he was told that he had TIAs in the past that he felt he had residual right sided
weakness that was still present. Patient has a h/o AAA treated with a stent graft and a h/o peripheral stents, but details are not clear. Called his primary venetian blind installer and obtained records. EF was stable by last echo. No reported h/o atrial
arrhythmia. No reported h/o CAD and no previous stress testing listed. Patient denies chest pain. Initial Troponin was 0.056 and then peaked at 3.77. ECG with lateral ST changes.
-ECG reviewed by me with lateral ST changes, SR. Initial Troponin was 0.056 and then peaked at 3.77. No chest pain.
-Check echo.
-Pending results of echo will manage as a nonischemic myocardial injury Troponin elevation due to CVA and HTN with BP as high as 176/106 on admission yesterday.
-BP has improved without specific intervention. Outpatient doses of amlodipine 5 mg daily, enalapril 20 mg BID and Toprol XL 25 mg daily have been on hold since admission.
-LDL 44 by CVE and outpatient dose of Crestor 10 mg daily was changed to atorvastatin 40 mg daily.
-Outpatient doses of aspirin and Plavix have been continued although patient says he was not necessarily taking aspirin daily prior to admission.
--- NOTE | 2023-07-19 11:31 | CM ---
Addendum entered by Venus Troncoso 07/19/23 13:23:
VM left for Emely, Petra is covering the [employer] today and update to special services.
Original Note:
Patient seen at bedside. Patient stated that he lives with his in an independent apartment with his who has memory issues. CM called to [facility] and updated Emely liaison with [facility] choice. Patient pending assessments from PT/OT
possible for acute rehab vs SNF. Patient does have insurance, and cards copied and provided to professional nursing tutor for communication admissions. CM will continue to follow for discharge planning needs.
Plan; Acute rehab vs SNF pending completion of assessments
[2023-07-19 11:37] LABS: Glucose - Point of Care 165 mg/dl (70-99)
[2023-07-19] MEDS: ANTIVERT 12.5 MG PO (13:17)
[2023-07-19] MEDS: NOVOLOG FLEXPEN-LOW RESISTANCE 1 UNITS SC (13:17)
[2023-07-19] MEDS: TOPROL XL 25 MG PO (16:13)
[2023-07-19 17:22] LABS: Glucose - Point of Care 254 mg/dl (70-99)
[2023-07-19] MEDS: NOVOLOG FLEXPEN-LOW RESISTANCE 3 UNITS SC (18:07)
[2023-07-19] MEDS: LOVENOX 40 MG SC (18:08)
[2023-07-19] MEDS: LIPITOR 40 MG PO (18:08)
[2023-07-19] MEDS: FLOMAX 0.400000000000000022 MG PO (18:08)
[2023-07-19] MEDS: PRANDIN 0.5 MG PO (18:10)
[2023-07-19] MEDS: VASOTEC 20 MG PO (21:25)
[2023-07-19] MEDS: PROSCAR 5 MG PO (21:25)
[2023-07-19 21:37] LABS: Glucose - Point of Care 192 mg/dl (70-99)
[2023-07-20] VITALS (7 sets, daily range): BP systolic 75–123; BP diastolic 30–71
[2023-07-20 04:59] LABS: Urine Albumin Negative (Neg - Trace); Urine Bilirubin Negative (Negative); Urine Character Clear (Clear); Urine Color Yellow; Urine Glucose 1+ (Negative); Urine Ketone Negative (Negative); Urine Leukocyte Negative (Negative); Urine Nitrite Negative (Negative); Urine Occult Blood Negative (Negative); Urine Urobilinogen Negative (Neg - 1+)
--- NOTE | 2023-07-20 05:29 | PTCARENOTE ---
Pt w/ decreased urine output. Pt bladder scanned for >1000mls. MAXX Goldberg notified. Bladder scan and straight cath ordered. Pt attempted to urinate but no urine out. Pt straight cathed for 1200mls of clear yellow urine. MAXX notified that urine
had a foul odor. Urinalysis ordered. Pt d/t urinate by 1020. Will pass onto dayshift and will continue plan of care.
[2023-07-20 07:38] LABS: Glucose - Point of Care 122 mg/dl (70-99)
[2023-07-20] MEDS: LOW STRENGTH ASPIRIN 81 MG PO (08:19)
[2023-07-20] MEDS: ANTIVERT 12.5 MG PO (08:19)
[2023-07-20] MEDS: TOPROL XL 25 MG PO (08:20)
[2023-07-20] MEDS: VITAMIN D3 (cholecalciferol) 25 MCG PO (08:20)
[2023-07-20] MEDS: NEURONTIN 600 MG PO (08:23)
[2023-07-20] MEDS: VASOTEC 20 MG PO (08:23)
[2023-07-20] MEDS: PLAVIX 75 MG PO (08:23)
[2023-07-20] MEDS: PLETAL 100 MG PO ×2 (08:23→21:35)
[2023-07-20] MEDS: NOVOLOG FLEXPEN-LOW RESISTANCE SC (08:26)
--- NOTE | 2023-07-20 10:05 | W.PN.HOSP.TC ---
Addendum entered and electronically signed by Nic Crawford MD 07/20/23 11:11:
Addendum
Low BP today after receiving his AM meds
will c/w BB but decrease enalapril to 5 mg BID starting 07/21.
End
Original Note:
Today's Communication/Plan
-
.
Assessment / Plan
Assessment / Plan
Physical Exam
General: Conversant
HEENT: Other (left parotid mass)
Respiratory: Clear
Cardiac: S1/S2, Regular Rhythm and Murmur (Systolic murmur at apex)
GI: Soft and Non Tender
Skin: Warm
No Lombardo, no hematuria
Psych: no agitation
Neuro: Awake and Alert; No No Motor Deficits (Mild weakness), Nonfocal/grossly intact (Mild weakness noted in the proximal muscles left arm, reflexes equal bilaterally) or Cranial Nerves Intact (Left facial droop noted).
# Small acute infarct in the right middle cerebellar peduncle measuring 4 mm.
He presented with dizziness with left facial droop
Patient has a history of TIAs
On aspirin and Plavix-continue
Continue rosuvastatin
He was out of the window for tPA
c/w monitor on telemetry
CTA head and neck noted with no acute changes or stenosis
PT OT and speech evaluations
NIH and neuro-checks
Will consult acute director of rehabilitation
Appreciate neurology help
# Upward trending of elevated troponin-patient denies any chest pain
Seems c/w NSTEMI
Troponin went down
No chest pain
Echo showed left ventricular ejection fraction 55%, mid septal/apical hypokinesis noted. Might need ischemic workup. Will discuss with cardiology.
History of coronary artery disease-He sees Dr Edmonds at [facility].
Continue aspirin and statin
Records from primary chain mortiser operator on chart
Appreciate cardiology help
# Mild hyponatremia-likely secondary to elevated sugar
Follow
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
# Diabetes-continue repaglinide
Hold metformin with Contrast
HGB A1C 7.7
Accu-Cheks and sliding scale
# Peripheral vascular disease-aspirin Plavix statin and also on cilostazol
History of femoral artery stents
# Chronic lower extremity edema-compression stockings
# Hypertension-hold amlodipine, enalapril, metoprolol in the setting of stroke
Permissive hypertension for 24 hours
# Prostate disease-BPH per previous history
Continue finasteride, alfuzosin or equivalent
# Neuropathy-likely diabetic
On gabapentin
# Hyperlipidemia-continue statin
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
GFR over 60 now
NO flank pain
# Adjustment disorder with anxiety and depression
# Bilateral trochanteric bursitis-hips
DDD-lumbar
# Insomnia -Melatonin
# IBS with constipation and diarrhea
# Diverticulosis
# Verdugo's esophagus- Add PPI
# DVT prophylaxis-Lovenox
# DNR status per discussion with patient.� Son was on the speaker phone
Total time spent to see the patient, examine the patient on the floor, review data and lab results, discuss treatment plan with patient, nursing staff around 55 minutes
Anticipated Discharge: 24 - 48 hours
Subjective/Interval History
-
Date of Service: July 20, 2023
Objective Data
-
Vital Signs:
Vital Signs
Temp Pulse Resp BP Pulse Ox
98.2 F 86 17 114/66 95
07/20/23 07:00 07/20/23 07:00 07/20/23 07:00 07/20/23 07:00 07/20/23 07:00
I&O
07/19/23 07/20/23 07/21/23
06:59 06:59 06:59
Intake Total 680 / 680 1110 / 1110
Output Total 1300 / 1300 1400 / 1400
Balance -620 / -620 -290 / -290
[2023-07-20 11:23] LABS: Glucose - Point of Care 238 mg/dl (70-99)
[2023-07-20] MEDS: NOVOLOG FLEXPEN-LOW RESISTANCE 2 UNITS SC ×2 (13:59→17:29)
--- NOTE | 2023-07-20 14:40 | W.PN.CARDCBS ---
Today's Communication / Plan
-
Treat non-STEMI medically with Toprol, aspirin, Plavix, statin
Consider outpatient ischemic evaluation as electively catheterization in the setting of acute cva
Continue monitoring for possible arrhythmia/A-fib as a cause of embolic event to the LAD and CVA
Impression / Plan
-
PCP: Dr. Magdalena Noland at [facility]
Cardiology: Dr. Igor Edmonds
Impression:
Dizzy and left sided facial droop 07/18/23
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
Non-STEMI with troponin of 3.8
h/o TIA
Abnormal ECG with lateral ST changes
Parotid mass
h/o AAA stent graft
HTN
Hyperlipidemia
DM 2
IC RBBB
Echo 07/22/22: EF 65-70, grade I diastolic dysfunction, normal RV size and function, no /AI, minimal MR
Echocardiogram 07/19/2023: Ejection fraction 55%, mid septal and apical hypokinesis
Plan:
Echocardiogram with new regional wall motion abnormalities and elevated troponin consistent with non-STEMI
He has no chest pain or shortness of breath and ejection fraction is normal
Reluctant to consider cardiac catheterization in the setting of an acute CVA
Unclear whether atrial fibrillation could have led to an embolic event to the LAD and CVA
No A-fib on telemetry so far
May need to consider outpatient monitor
He is already on aspirin, Plavix, Toprol with CVA as well as moderate dose Lipitor
Could consider workup with ischemic eval or catheterization as an outpatient or if develops symptoms
LDL 44 by CVE and outpatient dose of Crestor 10 mg daily was changed to atorvastatin 40 mg daily.
[facility]
PREADMIT DATA
-Patient came to [facility] yesterday with facial droop and is now admitted with CVA and cardiology has been consulted for elevated Troponin. Patient lives with his in the independent living section of [facility], but previously lived in [place].
Patient says that while he lived in [place] he had 2 TIAs and had a Linq monitor placed in 2016, but no arrhythmia was ever recorded. Patient says that even though he was told that he had TIAs in the past that he felt he had residual right sided
weakness that was still present. Patient has a h/o AAA treated with a stent graft and a h/o peripheral stents, but details are not clear. Called his primary crate icer and obtained records. EF was stable by last echo. No reported h/o atrial
arrhythmia. No reported h/o CAD and no previous stress testing listed. Patient denies chest pain. Initial Troponin was 0.056 and then peaked at 3.77. ECG with lateral ST changes.
Progress Note - Economic Consultant
Subjective
Date of Service: July 20, 2023
No chest pain or shortness of breath
Objective
Labs:
07/19/23 05:00
07/19/23 05:00
Labs
Hgb 12.5 g/dL (13.0-18.0) L 07/19/23 05:00
Hct 35.6 % (39.0-52.0) L 07/19/23 05:00
Plt Count 166 10^3/uL (130-400) 07/19/23 05:00
Sodium 135 mmol/L (135-145) 07/19/23 05:00
Potassium 4.2 mmol/L (3.5-5.1) 07/19/23 05:00
BUN 35 mg/dl (9-20) H 07/19/23 05:00
Creatinine 1.0 mg/dL (0.7-1.3) 07/19/23 05:00
Glucose 116 mg/dl (70-99) H 07/19/23 05:00
Troponins
07/18/23 07/18/23 07/19/23
07:09 12:12 07:21
Troponin I 0.056 H* 0.796 H* D 3.770 H*
07/19/23
12:45
Troponin I 2.180 H* D
Vital Signs and I&O:
Vital Signs
Temp Pulse Resp BP Pulse Ox
97.8 F 82 18 96/58 95
07/20/23 11:01 07/20/23 11:01 07/20/23 11:01 07/20/23 11:01 07/20/23 11:01
Vital Signs
Temp Pulse Resp BP Pulse Ox
97.8 F 82 18 96/58 95
07/20/23 11:01 07/20/23 11:01 07/20/23 11:01 07/20/23 11:01 07/20/23 11:01
Intake & Output
07/18/23 07/19/23 07/20/23 07/21/23
06:59 06:59 06:59 06:59
Intake Total 680 / 680 1110 / 1110
Output Total 1300 / 1300 1400 / 1400
Balance -620 / -620 -290 / -290
Physical Exam
Physical Exam
General: Well developed, well nourished in NAD.
Neck: Supple, no JVD, HJR, carotids +2 B/L, no bruits bilaterally.
Heart: Non displaced PMI, RRR, no murmurs, No S3, S4, no rubs.
Lungs: Clear to auscultation bilaterally, no wheeze, rhonchi, rubs bilaterally,
normal expiratory phase.
Extremities: No clubbing, cyanosis or edema bilaterally.
Neuro: Grossly nonfocal, awake, alert and oriented x3.
[2023-07-20] MEDS: NSS 1000 IV (15:16)
--- NOTE | 2023-07-20 16:31 | CM ---
PT OT evaluated patient .
Spoke with Maria Luz at [facility] to assess if patient is acute care appropriate.
Requested PMR commercial solar sales consultant form .
Will need auth .
Lives at [facility].
PLAN SNF or Acute rehab after auth
[2023-07-20 16:35] LABS: Glucose - Point of Care 215 mg/dl (70-99)
[2023-07-20] MEDS: FLOMAX 0.400000000000000022 MG PO (17:28)
[2023-07-20] MEDS: LOVENOX 40 MG SC (17:28)
[2023-07-20] MEDS: NEURONTIN 200 MG PO ×2 (17:28→21:35)
[2023-07-20] MEDS: LIPITOR 40 MG PO (17:29)
[2023-07-20] MEDS: PRANDIN 0.5 MG PO (17:29)
[2023-07-20] MEDS: PROSCAR 5 MG PO (21:35)
[2023-07-20 21:37] LABS: Glucose - Point of Care 150 mg/dl (70-99)
[2023-07-21] VITALS (7 sets, daily range): BP systolic 118–137; BP diastolic 61–74; PULSE 78; O2SAT 96
--- NOTE | 2023-07-21 00:27 | PTCARENOTE ---
Pt bladder scanned at 2145 for 430mls. MAXX Goldberg notified since it would have been pts third time being straight cathed. Order for nunes placed. 16f nunes placed and 500mls of clear yellow urine out. Will continue plan of care.
[2023-07-21 07:57] LABS: Glucose - Point of Care 134 mg/dl (70-99)
[2023-07-21] MEDS: NOVOLOG FLEXPEN-LOW RESISTANCE SC (08:55)
[2023-07-21] MEDS: ANTIVERT 12.5 MG PO (09:09)
[2023-07-21] MEDS: PLETAL 100 MG PO ×2 (09:10→20:56)
[2023-07-21] MEDS: LOW STRENGTH ASPIRIN 81 MG PO (09:10)
[2023-07-21] MEDS: VITAMIN D3 (cholecalciferol) 25 MCG PO (09:10)
[2023-07-21] MEDS: NEURONTIN 200 MG PO ×3 (09:10→21:00)
[2023-07-21] MEDS: PLAVIX 75 MG PO (09:11)
[2023-07-21] MEDS: TOPROL XL 25 MG PO (09:11)
--- NOTE | 2023-07-21 09:14 | W.PN.HOSP.TC ---
Today's Communication/Plan
-
.
Assessment / Plan
Assessment / Plan
Physical Exam
General: Conversant
HEENT: Other (left parotid mass)
Respiratory: Clear
Cardiac: S1/S2, Regular Rhythm and Murmur (Systolic murmur at apex)
GI: Soft and Non Tender
Skin: Warm
No Lombardo, no hematuria
Psych: no agitation
Neuro: Awake and Alert; No No Motor Deficits (Mild weakness), Nonfocal/grossly intact (Mild weakness noted in the proximal muscles left arm, reflexes equal bilaterally) or Cranial Nerves Intact (Left facial droop noted).
# Hypotension
medications induced.
Stable BP this morning
c/w BB
Stop Enalapril for now
Given 1 liter of NS.
# Small acute infarct in the right middle cerebellar peduncle measuring 4 mm.
He presented with dizziness with left facial droop
Patient has a history of TIAs
On aspirin and Plavix-continue
Continue rosuvastatin
He was out of the window for tPA
c/w monitor on telemetry
CTA head and neck noted with no acute changes or stenosis
PT OT and speech evaluations
NIH and neuro-checks
Appreciate acute vocational rehab consultant input
Appreciate neurology help
# Upward trending of elevated troponin-patient denies any chest pain
Seems c/w NSTEMI
Troponin went down
No chest pain
Echo showed left ventricular ejection fraction 55%, mid septal/apical hypokinesis noted. Might need ischemic workup. Will discuss with cardiology.
History of coronary artery disease-He sees Dr Edmonds at [place].
Continue aspirin and statin
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
Appreciate cardiology help
# Mild hyponatremia-likely secondary to elevated sugar
Follow
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
# Diabetes-continue repaglinide
Hold metformin with Contrast
HGB A1C 7.7
Accu-Cheks and sliding scale
# Peripheral vascular disease-aspirin Plavix statin and also on cilostazol
History of femoral artery stents
# Chronic lower extremity edema-compression stockings
# Hypertension-hold amlodipine, enalapril, metoprolol in the setting of stroke
Permissive hypertension for 24 hours
# Prostate disease-BPH per previous history
Continue finasteride, alfuzosin or equivalent
# Neuropathy-likely diabetic
On gabapentin
# Hyperlipidemia-continue statin
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
GFR over 60 now
NO flank pain
# Adjustment disorder with anxiety and depression
# Bilateral trochanteric bursitis-hips
DDD-lumbar
# Insomnia -Melatonin
# IBS with constipation and diarrhea
# Diverticulosis
# Verdugo's esophagus- Add PPI
# DVT prophylaxis-Lovenox
# DNR status per discussion with patient.� Son was on the speaker phone
Total time spent to see the patient, examine the patient on the floor, review data and lab results, discuss treatment plan with patient, son, nursing staff around 59 minutes
Anticipated Discharge: 24 - 48 hours
Subjective/Interval History
-
Date of Service: July 21, 2023
Doing better
no headache
dizzy upon standing
Objective Data
-
Vital Signs:
Vital Signs
Temp Pulse Resp BP Pulse Ox
98.3 F 81 16 124/62 95
07/21/23 07:46 07/21/23 07:46 07/21/23 07:46 07/21/23 07:46 07/21/23 07:46
I&O
07/20/23 07/21/23 07/22/23
06:59 06:59 06:59
Intake Total 1110 / 1110 840 / 840
Output Total 1400 / 1400 1700 / 1700
Balance -290 / -290 -860 / -860
--- NOTE | 2023-07-21 09:20 | CM ---
PT OT evaluated patient.PT held for low BP yesterday.
Spoke with Maria Luz at [facility] to assess if patient is acute care appropriate.
PMR ordered.
Will need auth from [place]. fax clinical to [phone]
Maintained on 1 liter oxygen [place] 95%.
PLAN SNF or Acute rehab after auth
--- NOTE | 2023-07-21 09:24 | CON.MD ---
Documented by User: Yuliana Lawrence PA-C 07/22/23 13:54
Consultation - Medical
-
Referring Provider: Nic Crawford
Chief Complaint: CVA
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
trochanteric bursitis-hips, PVD, insomnia, type 2 diabetes, benign prostatic hyperplasia, coronary artery disease, IBS with constipation and diarrhea, chronic lymphedema lower extremities, hyperlipidemia, diverticulosis, Verdugo's esophagus,
DDD-lumbar, CKD-stage unclear) brought to the emergency room by paramedics on 07/18/2023 for dizziness, weakness on the left side and noted facial droop that started overnight and woke up this morning noted the symptoms were still present.�He takes
Plavix, but no other anticoagulation.
Had a head CT and CTA which did not show any obvious new findings.� Patient is not a candidate for TNK as he has arrived outside of the window.� He is not a candidate for intra-arterial therapy because his NIH score is less than 6.� Patient will be
hospitalized for supportive care.� seen by neurology- Mr. Palomino admits to chronic bilateral tinnitus as well as hearing impairment.� He recalls history of stroke with residual mild right hemiparesis.�
Had abnormal EKG with elevated troponin. Echo with new regional wall motion abnormalities and elevated troponin consistent with NSTEMI. He has no chest pain or shortness of breath. Cardiology recommended holding off cardiac catheterization in
the setting of an acute CVA. Unclear whether atrial fibrillation could have led to an embolic event to the LAD and CVA. No Afib on telemetry. Patient to follow-up with primary cat wagon operator for consideration of ischemic evaluation as outpatient and
that patient should have manufacturing quality manager outpatient monitor.
CT head-There is no acute intracranial process. There is moderate volume loss and moderate asymmetric leukoaraiosis, with areas of previous infarct left basal ganglia infarct, with focus of decreased attenuation. Areas of asymmetric decreased
attenuation high in the right frontal lobe centrum semiovale ovale.
CTA head/neck-There are vascular calcifications however less than 50% stenosis of the ICA bilaterally. The vertebral arteries are patent bilaterally. Left is dominant. 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
MRI of the head: Small acute infarct in the right middle cerebellar peduncle measuring 4 mm.
Past Medical History: stroke, HTN, DLP, DM, polyneuropathy, vitamin D deficiency, ambulatory dysfunction, BPH
Procedure History: Bilateral cataract surgery, Hernia surgery with mesh x 2 inguinal and abdominal, Linq monitor placement in 2016, right ectropion repair, stents in femoral arteries, h/o AAA stent graft
Family History:
Social History:
Functional Level Premorbidly: Independent with all activities with the use of rolling walker.
Functional Level Currently: Supine to sit�min assist, sit to stand�mod assist, slight assist needed for trunk once seated patient more in midline than previous session, stand to sit�mod assist, stand/pivot/sit�mod assist, is up to her left calf and
balance as patient with slight left lean, difficulty advancing legs, reported increased dizziness.
Tobacco: Former Smoker
Alcohol:Occasional
Drug use: Denies
Lives with: Spouse
24-hour assistance available:
Number of floors: Apartment at [facility]'s choice
# steps to enter:0
# steps to second floor: 0
Potential First floor set up:yes
Driving:
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
�
Allergies:
Allergy/AdvReac Type Severity Reaction Status Date / Time
No Known Allergies Allergy Unverified 07/18/23 11:53
Review of Systems:
Constitutional: (x) Normal _
Eye: (x) Normal _
Ear/Nose/Throat: (x) Normal _
Respiratory: (x) Normal _
Cardiovascular: (x) Normal _
Gastrointestinal: (x) Normal _
Genitourinary: (x) Normal _
Musculoskeletal: (x) Normal _
Integumentary: (x) Normal _
Neurologic: (x) cva, TIA
Psychiatric: (x) Normal _
Endocrine: (x) Normal _
Hematologic/Lymphatic: (x) Normal _
Allergic/Immunologic: (x) Normal _
Medications:
Active Current Visit Medication List
Category Date Time Status
Acetaminophen [Tylenol/Feverall] Med 07/18/23 11:54 Active
650 mg RECTAL Q4HPRN PRN
Acetaminophen [Tylenol] Med 07/18/23 11:53 Active
650 mg PO Q4HPRN PRN
Aspirin Chewable [Low Strength Aspirin] Med 07/19/23 08:00 Active
81 mg PO DAILY
Atorvastatin [Lipitor] Med 07/18/23 18:00 Active
40 mg PO QPM
Cholecalciferol (Vitamin D3) [VITAMIN D3 ( Med 07/19/23 08:00 Active
cholecalciferol)]
25 mcg PO DAILY
Cilostazol [Pletal] Med 07/18/23 20:00 Active
100 mg PO BID
Clopidogrel Bisulfate [Plavix] Med 07/18/23 13:00 Active
75 mg PO DAILY
Dextrose 50%-Water [Dextrose 50% Syringe] Med 07/18/23 09:48 Active
12.5 grams IV [id number] PRN
Enoxaparin Sodium [Lovenox] Med 07/18/23 18:00 Active
40 mg SC QPM
Finasteride [Proscar] Med 07/18/23 22:00 Active
5 mg PO HS
Flush (0.9% Sodium Chloride) [Flush (Nss)] Med 07/20/23 16:00 Active
See Dose Instructions IV PER PROTOCOL
Gabapentin [Neurontin] Med 07/20/23 16:00 Active
200 mg PO TID
Glucagon [GlucaGen] Med 07/18/23 09:48 Active
1 mg IM PRN PRN
Insulin Aspart Corrective Low [Novolog Flexpen-Low Med 07/18/23 11:30 Active
Resistance]
See Protocol SC AC
Meclizine [Antivert] Med 07/19/23 18:00 Active
12.5 mg PO Q8HPRN PRN
Metoprolol Xl [Toprol Xl] Med 07/19/23 14:00 Active
25 mg PO DAILY
Repaglinide [Prandin] Med 07/18/23 17:00 Active
0.5 mg PO DAILY@1630
Tamsulosin [Flomax] Med 07/18/23 18:00 Active
0.4 mg PO QPM
Vitals:
Temp Pulse Resp BP Pulse Ox
98.1 F 80 17 121/74 96
07/21/23 11:26 07/21/23 11:26 07/21/23 11:26 07/21/23 11:26 07/21/23 11:26
Height 6 ft 3 in
Actual Weight 95.39 kg
Body Mass Index (BMI) 26.3
Physical Exam:
General Appearance/Observation: Well-developed, well-nourished individual in no apparent distress.
Pain/Comfort Assessment: Denies
Mood/Affect: Appropriate
Integumentary/Operative Site:
�� Pressure Ulcer Evaluation: absent over heels.
��
�� Other Type of Wound: absent
�
Eyes: Conjunctiva/Lids: normal ��� Pupils: pupils equal round and reactive to light and Accommodation
Ears/Nose/Throat: oral mucosa moist,� throat clear.������������ Lips/Teeth/Gums: normal
Neck: No muscle spasm or tenderness
Cardiovascular: Heart: regular, no murmur
Pulses: dorsalis pedis 2+ bilaterally
Respiratory: Respiratory Effort/Chest Expansion: normal ������ Auscultation: Clear to auscultation bilaterally
Gastrointestinal: abdomen not tender, no distension, normal abdominal bowel sounds
Genitourinary: Nunes
Extremities: Edema: None Cyanosis: None Trophic changes: None
Neurology Exam:
Orientation: Alert, Oriented to self, Time, Place
Memory: Intact for immediate medical concerns
Higher cortical function
Repetition: Intact
Comprehension: Intact
Two step command: Intact
Naming: Intact
Cranial Nerves:
�� CNII: Pupillary light reflex: Intact��� Visual Field: Intact
�� CN III, IV, : Extraocular muscles: Intact, except decreased convergence
�� CN V: Facial Sensation at Forehead: Intact, Maxilla: Intact, Mandible: Intact
�� CN VII: Facial movement: right facial weakness, deviated lips to the left
�� CN VIII: Hearing: Normal
�� CN IX/X: Speech & swallow: Normal, raspy voice Position of Uvula: Midline
�� CN XI: Shoulder shrug: Symmetric
�� CN XII: Tongue protrusion: Midline
Sensory:
�� Light touch: Intact in bilateral upper and lower extremities, except moderately diminished sensation in right foot
��
Reflexes:
�� Biceps: 2+ bilaterally
�� Brachioradialis: 2+ bilaterally
�� Triceps: 2+ bilaterally
�� Patellar: 2+ bilaterally
�� Achilles: 2+ bilaterally
�� Babinski: no response
�� Clonus: None
�� Shakila: Negative bilaterally
Cerebellar: Dysmetria/Ataxia: impaired on the right with nose to finger coordination
Musculoskeletal:
Motor: (Manual muscle scale 0-5)
Muscle SA EF WE EE FF FA HF KE DF EHL PF
Right� 5 5 5 5 4 4 4 5 5 5 5
Left 5 5 5 5 5 5 5 5 5 5 5
Tone: Normal in all extremities
Range of Motion: Passively within normal limits in all extremities
Lab Results
Labs
WBC 11.6 10^3/uL (4.8-10.8) H 07/19/23 05:00
RBC 4.01 10^6/uL (4.70-6.10) L 07/19/23 05:00
Hgb 12.5 g/dL (13.0-18.0) L 07/19/23 05:00
Hct 35.6 % (39.0-52.0) L 07/19/23 05:00
MCV 88.8 fL (80.0-94.0) 07/19/23 05:00
MCH 31.2 pg (27.0-31.0) H 07/19/23 05:00
MCHC 35.1 g/dL (33.0-37.0) 07/19/23 05:00
RDW 13.3 % (11.5-14.5) 07/19/23 05:00
Plt Count 166 10^3/uL (130-400) 07/19/23 05:00
MPV 9.7 fL (7.4-10.4) 07/19/23 05:00
Abs Immat Gran (auto) 0.0 10^3/uL (0-0.05) 07/18/23 07:09
Absolute Neuts (auto) 7.4 10^3/uL (1.4-6.5) H 07/18/23 07:09
Absolute Lymphs (auto) 0.4 10^3/uL (1.2-3.4) L 07/18/23 07:09
Absolute Monos (auto) 0.1 10^3/uL (0.1-0.6) 07/18/23 07:09
Absolute Eos (auto) 0.0 10^3/uL (0-0.7) 07/18/23 07:09
Absolute Basos (auto) 0.0 10^3/uL (0-0.2) 07/18/23 07:09
Immature Gran % 0.4 % (0-0.5) 07/18/23 07:09
Neutrophils % 93.2 % (42.2-75.2) H 07/18/23 07:09
Lymphocytes % 4.7 % (20.5-51.1) L 07/18/23 07:09
Monocytes % 1.6 % (1.7-9.3) L 07/18/23 07:09
Eosinophils % 0.0 % (0-6) 07/18/23 07:09
Basophils % 0.1 % (0-2) 07/18/23 07:09
Nucleated RBC % 0 % (-) 07/18/23 07:09
Sodium 135 mmol/L (135-145) 07/19/23 05:00
Potassium 4.2 mmol/L (3.5-5.1) 07/19/23 05:00
Chloride 101 mmol/L (98-107) 07/19/23 05:00
Carbon Dioxide 25 mmol/L (22-30) 07/19/23 05:00
BUN 35 mg/dl (9-20) H 07/19/23 05:00
Creatinine 1.0 mg/dL (0.7-1.3) 07/19/23 05:00
Estimated Creat Clear 61 ml/min 07/19/23 05:00
eGFR > 60.00 07/19/23 05:00
Glucose 116 mg/dl (70-99) H 07/19/23 05:00
Hemoglobin A1c 7.7 % (4.0-5.6) H 07/19/23 05:00
Calcium 9.6 mg/dl (8.4-10.2) 07/19/23 05:00
Troponin I 2.180 ng/ml H* D 07/19/23 12:45
Triglycerides 71 mg/dl (10-149) 07/19/23 05:00
Total Cholesterol 136 mg/dl (50-199) 07/19/23 05:00
LDL Cholesterol, Calc 44 mg/dl 07/19/23 05:00
VLDL Cholesterol, Calc 14 mg/dl (0-30) 07/19/23 05:00
HDL Cholesterol 78 mg/dl 07/19/23 05:00
Urine Color Yellow 07/20/23 04:27
Urine Clarity Clear (Clear) 07/20/23 04:27
Urine pH 5.0 (5.0-9.0) 07/20/23 04:27
Ur Specific [place] 1.020 (<1.030) 07/20/23 04:27
Urine Ketones Negative (Negative) 07/20/23 04:
Ur Occult Blood Reflex Negative (Negative) 07/20/23 04:
Urine Nitrite (Reflex) Negative (Negative) 07/20/23 04:
Urine Bilirubin Negative (Negative) 07/20/23 04:
Urine Urobilinogen Negative (Neg - 1+) 07/20/23 04:
Leukocyte Esterase Rfl Negative (Negative) 07/20/23 04:
Urine Glucose 1+ (Negative) A 07/20/23 04:
Urine Albumin (Reflex) Negative (Neg - Trace) 07/20/23 04:
POC Glucose 181 mg/dl (70-99) H 07/21/23 12:13
�
Diagnostic Results: as per HPI
Assessment 88-year-old right-handed male with PMH of (TIAs, neuropathy, hypertension, diabetes, adjustment disorder with anxiety and depression, bilateral trochanteric bursitis-hips, PVD, insomnia, type 2 diabetes, benign prostatic hyperplasia,
coronary artery disease, IBS with constipation and diarrhea, chronic lymphedema lower extremities, hyperlipidemia, diverticulosis, Verdugo's esophagus, DDD-lumbar, CKD-stage unclear) brought to the emergency room by paramedics on 07/18/2023 for
dizziness, weakness on the left side and noted facial droop that started overnight. CT scan with with areas of previous infarct left basal ganglia infarct, with focus of decreased attenuation and MRI with Small acute infarct in the right middle
cerebellar peduncle measuring 4 mm. + for NSTEMI with abnormal EKG, elevated troponin and wall abnormality on echo. To be followed by cardiology OP. Holding off cardiac cath due to recent CVA, asymptomatic, troponin trending down, and normal EF%.
Plan
PT/OT to increase independence with ADLs, improve balance, coordination, endurance, strength, mobility, community reintegration, decreased burden of care on others and family education.
CVA: Small acute infarct in the right middle cerebellar peduncle measuring 4 mm and old infarct in left basal ganglia. Secondary prophylaxis with aspirin, statin, and blood pressure control (SBP less than 180 and diastolic less than 100 to
participate with therapy for ischemic stroke). Continue to monitor neurologic status.
Diabetic Neuropathy: gabapentin 200mg tid
HTN:Toprol XL 25mg qd, monitor closely
Hypotension: Enalapril decreased to 5 mg twice daily. Off medicine.
Dizziness: Meclizine 12.5mg q 8 prn
HLD: Rosuvastatin
Coronary artery disease : aspirin, Plavix, Toprol and Lipitor
Non-STEMI with troponin of 3.8 down to 2.18. (07/19). Echo 07/22/22: EF 65-70, grade I diastolic dysfunction, normal RV size and function, no /AI, minimal MR .Echo07/19/2023: Ejection fraction 55%, mid septal and apical hypokinesis. To f/u with
cardiology OP for ischemic work-up. Hold off cardiac cath in setting of new CVA since EF normal and asymptomatic. Plavix, aspirin 81, cilostazol 100 twice daily
Hyponatremia-likely secondary to elevated sugar
Left parotid mass: Outpatient ENT follow-up to rule out malignancy.
DM II: Accu-Cheks, insulin sliding scale, Prandin 0.5 mg daily,
BPH: Continue finasteride, alfuzosin�
Insomnia: Melatonin
Bilateral lower extremity edema: Consider TEDS as able. Increased fluid will cause more force requirement to move lower extremities which requires more strength and increases fatigue.
Pressure ulcers:� Vitamin C, zinc, multivitamin.� Weight shifts in wheelchair and bed.� Roho cushion.� Pressure-relief boots.� Lotrimin to fungal rash over buttocks and inguinal region.
Anemia: Likely multifactorial.� Continue to monitor. 12.5
Psych: Psychology consult.� Monitor mood, adjust medications as needed.
Skin: monitor for pressure sores/rashes/lesions.
Pain: acetaminophen or oxycodone as needed.
Bowel: Colace and Senna, PRN bisacodyl.
Bladder: Time void, PVRs, PRN straight cath.
GI Prophylaxis: Pantoprazole
DVT Prophylaxis: Mechanical and Lovenox
Pulmonary: Incentive spirometry
Safety: Continue to reinforce assistance with all transfers.
Code Status:� DNR
Dispo (date/plan/equipment needs): Home with family care.� Social history reviewed.
Functional and Medical Goals: Modified Independent with ADL�s, ambulation, transfers
Discharge Destination: Acute inpatient rehabilitation
Summary of recommendations:
- Discharge Destination: Acute inpatient rehabilitation would benefit from PT/OT to increase independence with ADLs, improve balance, coordination, endurance,
mobility, community reintegration.
CVA: Small acute infarct in the right middle cerebellar peduncle measuring 4 mm and old infarct in left basal ganglia with residual right-sided weakness.
Secondary prophylaxis with aspirin, statin, and blood pressure control (SBP less than 180 and diastolic less than 100 to participate with therapy for ischemic stroke Continue to monitor neurologic status.
Non-STEMI :recent-Plavix, aspirin 81, cilostazol 100 twice daily
HTN:Toprol XL 25mg qd, enalapril, monitor closely. (Blood pressure must be less than 180 systolic and 100 diastolic for 24 hours before being stable for transfer rehab).
DVT Prophylaxis: Mechanical and Lovenox
Pulmonary: Incentive spirometry
Bowel: Colace and Senna, PRN bisacodyl. If no significant Bowel movement within past 3 days.
Bladder: Trial of time void, PVRs, PRN straight cath to transition from nunes to help minimize chance for infection
BPH: Continue finasteride, alfuzosin�
Thank you for allowing me to care for your patient. Please contact me with any questions or concerns.
This note was dictated using a voice recognition system. Please excuse any typographical errors from mission planner. If you believe there are any discrepancies, please notify our office.

Documented by User: Amol Mercer MD 07/22/23 14:45
Consultation - Medical
-
Referring Provider: Nic Crawford
Chief Complaint: CVA
History of Present Illness: 88-year-old right-handed male with PMH of (TIAs, 3 previous CVA in the 1960'with slight residual weakness on right side, neuropathy, hypertension, diabetes, adjustment disorder with anxiety and depression, bilateral
trochanteric bursitis-hips, PVD, insomnia, type 2 diabetes, benign prostatic hyperplasia, coronary artery disease, IBS with constipation and diarrhea, chronic lymphedema lower extremities, hyperlipidemia, diverticulosis, Verdugo's esophagus,
DDD-lumbar, CKD-stage unclear) brought to the emergency room by paramedics on 07/18/2023 for dizziness, weakness on the left side and noted facial droop that started overnight and woke up this morning noted the symptoms were still present.�He takes
Plavix, but no other anticoagulation. Had a head CT and CTA which did not show any obvious new findings.� Patient is not a candidate for TNK as he has arrived outside of the window.� He is not a candidate for intra-arterial therapy because his NIH
score is less than 6.� Patient will be hospitalized for supportive care.� seen by neurology- Mr. Palomino admits to chronic bilateral tinnitus as well as hearing impairment.� He recalls history of stroke with residual mild right hemiparesis.�
Had abnormal EKG with elevated troponin. Echo with new regional wall motion abnormalities and elevated troponin consistent with NSTEMI. He has no chest pain or shortness of breath. Cardiology recommended holding off cardiac catheterization in
the setting of an acute CVA. Unclear whether atrial fibrillation could have led to an embolic event to the LAD and CVA. No Afib on telemetry. Patient to follow-up with primary cat wagon operator for consideration of ischemic evaluation as outpatient and
that patient should have [facility] outpatient monitor.
CT head-There is no acute intracranial process. There is moderate volume loss and moderate asymmetric leukoaraiosis, with areas of previous infarct left basal ganglia infarct, with focus of decreased attenuation. Areas of asymmetric decreased
attenuation high in the right frontal lobe centrum semiovale ovale.
CTA head/neck-There are vascular calcifications however less than 50% stenosis of the ICA bilaterally. The vertebral arteries are patent bilaterally. Left is dominant. 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
MRI of the head: Small acute infarct in the right middle cerebellar peduncle measuring 4 mm.
Past Medical History: stroke with right-sided weakness and right-sided sensory changes, HTN, DLP, DM with diabetic neuropathy, polyneuropathy, vitamin D deficiency, ambulatory dysfunction, BPH, PAD
Procedure History: Bilateral cataract surgery, Hernia surgery with mesh x 2 inguinal and abdominal, Linq monitor placement in 2016, right ectropion repair, stents in femoral arteries, h/o AAA stent graft
Family History: CAD (Father and mother.� Mother in her 90s and father in his 80s.)
Social History:
Functional Level Premorbidly: Independent with all activities with the use of rolling walker.
Functional Level Currently: Supine to sit�min assist, sit to stand�mod assist, slight assist needed for trunk once seated patient more in midline than previous session, stand to sit�mod assist, stand/pivot/sit�mod assist, is up to her left calf and
balance as patient with slight left lean, difficulty advancing legs, reported increased dizziness.
Tobacco: Former Smoker
Alcohol: Occasional
Drug use: Denies
Lives with: Spouse
24-hour assistance available: Yes, but has significant cognitive dysfunction
Number of floors: Apartment at [facility]'s choice
# steps to enter:0
# steps to second floor: 0
Potential First floor set up:yes
Driving: Yes
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
�
Allergies:
Allergy/AdvReac Type Severity Reaction Status Date / Time
No Known Allergies Allergy Unverified 07/18/23 11:53
Review of Systems:
Constitutional: (x) abNormal _fatigue
Eye: (x) Normal _
Ear/Nose/Throat: (x) Normal _
Respiratory: (x) Normal _
Cardiovascular: (x) Normal _
Gastrointestinal: (x) Normal _
Genitourinary: (x) Normal _
Musculoskeletal: (x) Normal _
Integumentary: (x) Normal _
Neurologic: (x) abNormal _cva, TIA. Notes baseline neuropathy in both feet with sensory changes and right-sided weakness/sensory changes from prior stroke.
Psychiatric: (x) Normal _
Endocrine: (x) Normal _
Hematologic/Lymphatic: (x) Normal _
Allergic/Immunologic: (x) Normal _
Medications:
Active Current Visit Medication List
Category Date Time Status
Acetaminophen [Tylenol/Feverall] Med 07/18/23 11:54 Active
650 mg RECTAL Q4HPRN PRN
Acetaminophen [Tylenol] Med 07/18/23 11:53 Active
650 mg PO Q4HPRN PRN
Aspirin Chewable [Low Strength Aspirin] Med 07/19/23 08:00 Active
81 mg PO DAILY
Atorvastatin [Lipitor] Med 07/18/23 18:00 Active
40 mg PO QPM
Cholecalciferol (Vitamin D3) [VITAMIN D3 ( Med 07/19/23 08:00 Active
cholecalciferol)]
25 mcg PO DAILY
Cilostazol [Pletal] Med 07/18/23 20:00 Active
100 mg PO BID
Clopidogrel Bisulfate [Plavix] Med 07/18/23 13:00 Active
75 mg PO DAILY
Dextrose 50%-Water [Dextrose 50% Syringe] Med 07/18/23 09:48 Active
12.5 grams IV [id number] PRN
Enoxaparin Sodium [Lovenox] Med 07/18/23 18:00 Active
40 mg SC QPM
Finasteride [Proscar] Med 07/18/23 22:00 Active
5 mg PO HS
Flush (0.9% Sodium Chloride) [Flush (Nss)] Med 07/20/23 16:00 Active
See Dose Instructions IV PER PROTOCOL
Gabapentin [Neurontin] Med 07/20/23 16:00 Active
200 mg PO TID
Glucagon [GlucaGen] Med 07/18/23 09:48 Active
1 mg IM PRN PRN
Insulin Aspart Corrective Low [Novolog Flexpen-Low Med 07/18/23 11:30 Active
Resistance]
See Protocol SC AC
Meclizine [Antivert] Med 07/19/23 18:00 Active
12.5 mg PO Q8HPRN PRN
Metoprolol Xl [Toprol Xl] Med 07/19/23 14:00 Active
25 mg PO DAILY
Repaglinide [Prandin] Med 07/18/23 17:00 Active
0.5 mg PO DAILY@1630
Tamsulosin [Flomax] Med 07/18/23 18:00 Active
0.4 mg PO QPM
Vitals:
Temp Pulse Resp BP Pulse Ox
98.1 F 80 17 121/74 96
07/21/23 11:26 07/21/23 11:26 07/21/23 11:26 07/21/23 11:26 07/21/23 11:26
Height 6 ft 3 in
Actual Weight 95.39 kg
Body Mass Index (BMI) 26.3
Physical Exam:
General Appearance/Observation: Well-developed, well-nourished male in no apparent distress.
Pain/Comfort Assessment: Denies
Mood/Affect: Appropriate
Integumentary/Operative Site:
�� Pressure Ulcer Evaluation: absent over heels.
�
Eyes: Conjunctiva/Lids: normal ��� Pupils: pupils equal round and reactive to light and Accommodation
Ears/Nose/Throat: oral mucosa moist,� throat clear.������������ Lips/Teeth/Gums: normal
Neck: No muscle spasm or tenderness
Cardiovascular: Heart: regular, no murmur
Pulses: dorsalis pedis 2+ bilaterally
Respiratory: Respiratory Effort/Chest Expansion: normal ������ Auscultation: Clear to auscultation bilaterally
Gastrointestinal: abdomen not tender, no distension, normal abdominal bowel sounds
Genitourinary: Nunes
Extremities: Edema: None Cyanosis: None Trophic changes: None
Neurology Exam:
Orientation: Alert, Oriented to self, Time, Place
Memory: Intact for immediate medical concerns
Higher cortical function
Repetition: Intact
Comprehension: Intact
Two step command: Intact
Naming: Intact
Cranial Nerves:
�� CNII: Pupillary light reflex: Intact��� Visual Field: Intact
�� CN III, IV, : Extraocular muscles: Intact, except decreased convergence
�� CN V: Facial Sensation at Forehead: Intact, Maxilla: Intact, Mandible: Intact
�� CN VII: Facial movement: right facial weakness, deviated lips to the left
�� CN VIII: Hearing: Normal
�� CN IX/X: Speech & swallow: Normal, raspy voice Position of Uvula: Midline
�� CN XI: Shoulder shrug: Symmetric
�� CN XII: Tongue protrusion: Midline
Sensory:
�� Light touch: Normal in left hand, paresthesias right hand and left foot. Absent sensation right foot.
��
Reflexes:
�� Biceps: 2+ bilaterally
�� Brachioradialis: 2+ bilaterally
�� Triceps: 2+ bilaterally
�� Patellar: 2+ bilaterally
�� Achilles: 2+ bilaterally
�� Babinski: no response
�� Clonus: None
�� Shakila: Negative bilaterally
Cerebellar: Dysmetria/Ataxia: impaired on the right with nose to finger coordination, left intact.
Musculoskeletal: Motor: (Manual muscle scale 0-5)
Muscle SA EF WE EE FF FA HF KE DF EHL PF
Right� 5 5 5 5 4 4 4 5 5 5 5
Left 5 5 5 5 5 5 5 5 5 5 5
Tone: Normal in all extremities
Range of Motion: Passively within normal limits in all extremities
Lab Results
Labs
WBC 11.6 10^3/uL (4.8-10.8) H 07/19/23 05:00
RBC 4.01 10^6/uL (4.70-6.10) L 07/19/23 05:00
Hgb 12.5 g/dL (13.0-18.0) L 07/19/23 05:00
Hct 35.6 % (39.0-52.0) L 07/19/23 05:00
MCV 88.8 fL (80.0-94.0) 07/19/23 05:00
MCH 31.2 pg (27.0-31.0) H 07/19/23 05:00
MCHC 35.1 g/dL (33.0-37.0) 07/19/23 05:00
RDW 13.3 % (11.5-14.5) 07/19/23 05:00
Plt Count 166 10^3/uL (130-400) 07/19/23 05:00
MPV 9.7 fL (7.4-10.4) 07/19/23 05:00
Abs Immat Gran (auto) 0.0 10^3/uL (0-0.05) 07/18/23 07:09
Absolute Neuts (auto) 7.4 10^3/uL (1.4-6.5) H 07/18/23 07:09
Absolute Lymphs (auto) 0.4 10^3/uL (1.2-3.4) L 07/18/23 07:09
Absolute Monos (auto) 0.1 10^3/uL (0.1-0.6) 07/18/23 07:09
Absolute Eos (auto) 0.0 10^3/uL (0-0.7) 07/18/23 07:09
Absolute Basos (auto) 0.0 10^3/uL (0-0.2) 07/18/23 07:09
Immature Gran % 0.4 % (0-0.5) 07/18/23 07:09
Neutrophils % 93.2 % (42.2-75.2) H 07/18/23 07:09
Lymphocytes % 4.7 % (20.5-51.1) L 07/18/23 07:09
Monocytes % 1.6 % (1.7-9.3) L 07/18/23 07:09
Eosinophils % 0.0 % (0-6) 07/18/23 07:09
Basophils % 0.1 % (0-2) 07/18/23 07:09
Nucleated RBC % 0 % (-) 07/18/23 07:09
Sodium 135 mmol/L (135-145) 07/19/23 05:00
Potassium 4.2 mmol/L (3.5-5.1) 07/19/23 05:00
Chloride 101 mmol/L (98-107) 07/19/23 05:00
Carbon Dioxide 25 mmol/L (22-30) 07/19/23 05:00
BUN 35 mg/dl (9-20) H 07/19/23 05:00
Creatinine 1.0 mg/dL (0.7-1.3) 07/19/23 05:00
Estimated Creat Clear 61 ml/min 07/19/23 05:00
eGFR > 60.00 07/19/23 05:00
Glucose 116 mg/dl (70-99) H 07/19/23 05:00
Hemoglobin A1c 7.7 % (4.0-5.6) H 07/19/23 05:00
Calcium 9.6 mg/dl (8.4-10.2) 07/19/23 05:00
Troponin I 2.180 ng/ml H* D 07/19/23 12:45
Triglycerides 71 mg/dl (10-149) 07/19/23 05:00
Total Cholesterol 136 mg/dl (50-199) 07/19/23 05:00
LDL Cholesterol, Calc 44 mg/dl 07/19/23 05:00
VLDL Cholesterol, Calc 14 mg/dl (0-30) 07/19/23 05:00
HDL Cholesterol 78 mg/dl 07/19/23 05:00
Urine Color Yellow 07/20/23 04:27
Urine Clarity Clear (Clear) 07/20/23 04:
Urine pH 5.0 (5.0-9.0) 07/20/23 04:
Ur Specific [place] 1.020 (<1.030) 07/20/23 04:
Urine Ketones Negative (Negative) 07/20/23 04:
Ur Occult Blood Reflex Negative (Negative) 07/20/23 04:
Urine Nitrite (Reflex) Negative (Negative) 07/20/23 04:
Urine Bilirubin Negative (Negative) 07/20/23 04:
Urine Urobilinogen Negative (Neg - 1+) 07/20/23 04:
Leukocyte Esterase Rfl Negative (Negative) 07/20/23 04:
Urine Glucose 1+ (Negative) A 07/20/23 04:
Urine Albumin (Reflex) Negative (Neg - Trace) 07/20/23 04:
POC Glucose 181 mg/dl (70-99) H 07/21/23 12:13
�
Diagnostic Results: as per HPI
Assessment 88-year-old R-handed M PMH (TIAs, neuropathy, hypertension, diabetes, adjustment disorder with anxiety and depression, bilateral trochanteric bursitis-hips, PVD, insomnia, type 2 diabetes, benign prostatic hyperplasia, coronary artery
disease, IBS with constipation and diarrhea, chronic lymphedema lower extremities, hyperlipidemia, diverticulosis, Verdugo's esophagus, DDD-lumbar, CKD-stage unclear) with 07/18/2023 for dizziness, weakness on the left side and noted facial droop
from small acute infarct in the right middle cerebellar peduncle and NSTEMI with elevated troponin and wall abnormality on echo with outpatient cardiac cath due to recent CVA, asymptomatic, troponin trending down, and normal EF%--with ADL and
ambulatory dysfunction
Plan
PT/OT to increase independence with ADLs, improve balance, coordination, endurance, strength, mobility, community reintegration, decreased burden of care on others and family education.
CVA: Small acute infarct in the right middle cerebellar peduncle measuring 4 mm and old infarct in left basal ganglia. Secondary prophylaxis with aspirin, statin, and blood pressure control (SBP less than 180 and diastolic less than 100 to
participate with therapy for ischemic stroke). Continue to monitor neurologic status.
Right dominant hemiparesis: Notes stable from prior stroke
Right hemisensory loss: Notes stable from prior stroke
Diabetic Neuropathy: gabapentin 200 mg tid, makes patient high risk for falls.
-Right foot sensation loss: Likely secondary to bilateral peripheral polyneuropathy and chronic right-sided sensory loss from prior CVA
HTN:Toprol XL 25 mg qd, monitor closely
Hypotension: Off blood pressure medicine except for metoprolol for CAD.
Dizziness: Meclizine 12.5 mg q 8 prn
HLD: Rosuvastatin
PAD:aspirin, Plavix, cilostazol and Lipitor
CAD with Non-STEMI: aspirin, Plavix, Toprol and Lipitor. troponin 3.8 down to 2.18. (07/19). Echo 07/22/22: EF 65-70, grade I diastolic dysfunction, normal RV size and function, no /AI, minimal MR .Echo07/19/2023: Ejection fraction 55%, mid septal
and apical hypokinesis. To f/u with cardiology OP for ischemic work-up. Hold off cardiac cath in setting of new CVA since EF normal and asymptomatic.
Hyponatremia-likely secondary to elevated sugar, medicine evaluation
Left parotid mass: Outpatient ENT follow-up to rule out malignancy.
DM II: Accu-Cheks, insulin sliding scale, Prandin 0.5 mg daily,
BPH: finasteride, alfuzosin�
Insomnia: Melatonin
Bilateral lower extremity edema: Consider TEDS as able. Increased fluid will cause more force requirement to move lower extremities which requires more strength and increases fatigue.
Anemia: Likely multifactorial.� Continue to monitor. 12.5
Psych: Psychology consult.� Monitor mood, medications as needed.
Skin: monitor for pressure sores/rashes/lesions.
Pain: acetaminophen as needed.
Bowel: Colace and Senna, PRN bisacodyl.
Bladder: Time void, PVRs, PRN straight cath.
DVT Prophylaxis: Mechanical and Lovenox
Pulmonary: Incentive spirometry
Safety: Continue to reinforce assistance with all transfers.
Code Status:� DNR
Dispo (date/plan/equipment needs): Home with family care.� Social history reviewed.
Functional and Medical Goals: Modified Independent with ADL�s, ambulation, transfers
Discharge Destination: Acute inpatient rehabilitation
-Attending statement:
I saw and examined the patient today. Reviewed care plan with patient, therapy, nursing, and physician advertising assistant. I agree with the above subjective, physical exam, and plan as documented above.
-A total of 60 minutes were spent with the patient preparing for the evaluation, obtaining history, performing examination and evaluation, counseling, data review, case management, care coordination, order management specialist, and EMR documentation.
Summary of recommendations:
- Discharge Destination: Acute inpatient rehabilitation would benefit from PT/OT to increase independence with ADLs, improve balance, coordination, endurance, mobility, community reintegration.
CVA: Secondary prophylaxis with aspirin, statin, and blood pressure control (SBP less than 180 and diastolic less than 100 to participate with therapy for ischemic stroke. Continue to monitor neurologic status.
CAD with Non-STEMI: aspirin, Plavix, Toprol and Lipitor. f/u with cardiology OP for ischemic work-up. Hold off cardiac cath in setting of new CVA since EF normal and asymptomatic.
HTN:Toprol XL 25mg qd, enalapril, monitor closely. (Blood pressure must be less than 180 systolic and 100 diastolic for 24 hours before being stable for transfer rehab).
DVT Prophylaxis: Mechanical and Lovenox
Pulmonary: Incentive spirometry
Bowel: Colace and Senna, PRN bisacodyl if no significant Bowel movement within past 3 days.
Bladder: Trial of time void, PVRs, PRN straight cath to transition from nunes to help minimize chance for infection
BPH: finasteride, alfuzosin�
Thank you for allowing me to care for your patient. Please contact me with any questions or concerns.
This note was dictated using a voice recognition system. Please excuse any typographical errors from mission planner. If you believe there are any discrepancies, please notify our office.
[2023-07-21 12:14] LABS: Glucose - Point of Care 181 mg/dl (70-99)
[2023-07-21] MEDS: NOVOLOG FLEXPEN-LOW RESISTANCE 1 UNITS SC (13:02)
--- NOTE | 2023-07-21 14:14 | W.PN.CARDCBS ---
Today's Communication / Plan
-
Continue medical management of CAD with aspirin, Plavix, statin, beta-mark
Consideration of ischemic evaluation as an outpatient with his primary muffler tender
We will sign off, please recall as needed
Impression / Plan
-
PCP: Dr. Magdalena Noland at [facility]
Cardiology: Dr. Igor Edmonds
Impression:
Dizziness and left sided facial droop 07/18/23
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
Non-STEMI with troponin of 3.8
h/o TIA
Abnormal ECG with lateral ST changes
Parotid mass
h/o AAA stent graft
HTN
Hyperlipidemia
DM 2
IC RBBB
Echo 07/22/22: EF 65-70, grade I diastolic dysfunction, normal RV size and function, no /AI, minimal MR
Echocardiogram 07/19/2023: Ejection fraction 55%, mid septal and apical hypokinesis
Plan:
Echocardiogram with new regional wall motion abnormalities and elevated troponin consistent with non-STEMI
He has no chest pain or shortness of breath and ejection fraction is normal
Would hold off on cardiac catheterization in the setting of an acute CVA
Unclear whether atrial fibrillation could have led to an embolic event to the LAD and CVA
Continue medical management of CAD with aspirin, Plavix, Toprol and Lipitor
Discussed with patient that he should follow up with primary muffler tender for consideration of ischemic evaluation
No A-fib on telemetry so far
Discussed with patient that he should have bed bug exterminator outpatient monitor
LDL 44 by CVE and outpatient dose of Crestor 10 mg daily was changed to atorvastatin 40 mg daily.
We will sign off, please recall as needed
Should follow up with primary muffler tender Dr. Edmonds at [facility], we will attempt to reach out to their office to facilitate
PREADMIT DATA
-Patient came to [facility] yesterday with facial droop and is now admitted with CVA and cardiology has been consulted for elevated Troponin. Patient lives with his in the independent living section of [facility], but previously lived in [place].
Patient says that while he lived in [place] he had 2 TIAs and had a Linq monitor placed in 2016, but no arrhythmia was ever recorded. Patient says that even though he was told that he had TIAs in the past that he felt he had residual right sided
weakness that was still present. Patient has a h/o AAA treated with a stent graft and a h/o peripheral stents, but details are not clear. Called his primary muffler tender and obtained records. EF was stable by last echo. No reported h/o atrial
arrhythmia. No reported h/o CAD and no previous stress testing listed. Patient denies chest pain. Initial Troponin was 0.056 and then peaked at 3.77. ECG with lateral ST changes.
Progress Note - Humidifier Operator
Subjective
Date of Service: July 21, 2023
Resting comfortably in bed this morning. Reporting some intermittent dizziness. No chest pain or pressure overnight, tells me he has not had any chest discomfort in the past several days. Breathing is comfortable. Telemetry reviewed which shows
normal sinus rhythm.
Objective
Labs:
07/19/23 05:00
07/19/23 05:00
Labs
Hgb 12.5 g/dL (13.0-18.0) L 07/19/23 05:00
Hct 35.6 % (39.0-52.0) L 07/19/23 05:00
Plt Count 166 10^3/uL (130-400) 07/19/23 05:00
Sodium 135 mmol/L (135-145) 07/19/23 05:00
Potassium 4.2 mmol/L (3.5-5.1) 07/19/23 05:00
BUN 35 mg/dl (9-20) H 07/19/23 05:00
Creatinine 1.0 mg/dL (0.7-1.3) 07/19/23 05:00
Glucose 116 mg/dl (70-99) H 07/19/23 05:00
Troponins
07/19/23 07/19/23
07:21 12:45
Troponin I 3.770 H* 2.180 H* D
Vital Signs and I&O:
Vital Signs
Temp Pulse Resp BP Pulse Ox
98.1 F 80 17 121/74 96
07/21/23 11:26 07/21/23 11:26 07/21/23 11:26 07/21/23 11:26 07/21/23 11:26
Vital Signs
Temp Pulse Resp BP Pulse Ox
98.1 F 80 17 121/74 96
07/21/23 11:26 07/21/23 11:26 07/21/23 11:26 07/21/23 11:26 07/21/23 11:26
Intake & Output
07/19/23 07/20/23 07/21/23 07/22/23
06:59 06:59 06:59 06:59
Intake Total 680 / 680 1110 / 1110 840 / 840
Output Total 1300 / 1300 1400 / 1400 1700 / 1700
Balance -620 / -620 -290 / -290 -860 / -860
Physical Exam
Physical Exam
Gen: NAD, AA
HEENT: NC/AT, sclera anicteric
Neck: No JVD
CV: RRR, NL s1/s2, no M/R/G
Lungs: CTAB
Abd: S/ND
Ext: No LE edema
Skin: Warm, dry
Neuro: Non-focal
[2023-07-21 16:34] LABS: Glucose - Point of Care 230 mg/dl (70-99)
[2023-07-21] MEDS: NOVOLOG FLEXPEN-LOW RESISTANCE 2 UNITS SC (17:42)
[2023-07-21] MEDS: LOVENOX 40 MG SC (17:43)
[2023-07-21] MEDS: FLOMAX 0.400000000000000022 MG PO (17:43)
[2023-07-21] MEDS: PRANDIN 0.5 MG PO (17:47)
[2023-07-21] MEDS: LIPITOR 40 MG PO (17:47)
[2023-07-21] MEDS: PROSCAR 5 MG PO (21:00)
[2023-07-21 21:43] LABS: Glucose - Point of Care 169 mg/dl (70-99)
[2023-07-22] VITALS (8 sets, daily range): BP systolic 125–142; BP diastolic 62–78; PULSE 81; O2SAT 94
[2023-07-22 08:09] LABS: Glucose - Point of Care 140 mg/dl (70-99)
[2023-07-22] MEDS: LOW STRENGTH ASPIRIN 81 MG PO (08:45)
[2023-07-22] MEDS: NOVOLOG FLEXPEN-LOW RESISTANCE SC (08:45)
[2023-07-22] MEDS: NEURONTIN 200 MG PO ×3 (08:46→20:17)
[2023-07-22] MEDS: PLETAL 100 MG PO ×2 (08:46→20:17)
[2023-07-22] MEDS: TOPROL XL 25 MG PO (08:46)
[2023-07-22] MEDS: PLAVIX 75 MG PO (08:46)
[2023-07-22] MEDS: VITAMIN D3 (cholecalciferol) 25 MCG PO (08:46)
[2023-07-22] MEDS: ANTIVERT 12.5 MG PO (08:54)
--- NOTE | 2023-07-22 09:26 | W.PN.HOSP.TC ---
Today's Communication/Plan
-
dc planning
Assessment / Plan
Assessment / Plan
Physical Exam
General: Conversant
HEENT: Other (left parotid mass)
Respiratory: Clear
Cardiac: S1/S2, Regular Rhythm and Murmur (Systolic murmur at apex)
GI: Soft and Non Tender
Skin: Warm
No Lombardo, no hematuria
Psych: no agitation
Neuro: Awake and Alert; No No Motor Deficits (Mild weakness), Nonfocal/grossly intact (Mild weakness noted in the proximal muscles left arm, reflexes equal bilaterally) or Cranial Nerves Intact (Left facial droop noted).
# Acute urinary retention
Placed Lombardo, failed straight cath.
c/w Flomax and Finasteride.
Will need voiding trial few days into rehab & increasing activity.
# Hypotension and he felt more dizzy
medications induced.
Stable BP
c/w BB
Stopped Enalapril for now
Given 1 liter of NS.
# Small acute infarct in the right middle cerebellar peduncle measuring 4 mm.
He presented with dizziness with left facial droop
Patient has a history of TIAs
He seemed sleepy and weak, cut back on Gabapentin
On aspirin and Plavix-continue
Continue rosuvastatin, no need to change to Lipitor as LDL 44
He was out of the window for tPA
c/w monitor on telemetry
CTA head and neck noted with no acute changes or stenosis
PT OT and speech evaluations
NIH and neuro-checks
Appreciate acute veterans rehabilitation counselor input
Appreciate neurology help
# Upward trending of elevated troponin-patient denies any chest pain
Seems c/w NSTEMI
Troponin went down
No chest pain
Echo showed left ventricular ejection fraction 55%, mid septal/apical hypokinesis noted. Might need ischemic workup. Will discuss with cardiology.
History of coronary artery disease-He sees Dr Edmonds at [facility].
Continue aspirin and statin
Records from primary extraction machine operator on chart
Appreciate cardiology help
# Mild hyponatremia-likely secondary to elevated sugar
Follow
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
# Diabetes-continue repaglinide
Hold metformin with Contrast
HGB A1C 7.7
Accu-Cheks and sliding scale
# Peripheral vascular disease-aspirin Plavix statin and also on cilostazol
History of femoral artery stents
# Chronic lower extremity edema-compression stockings
# Hypertension-hold amlodipine, enalapril, metoprolol in the setting of stroke
Permissive hypertension for 24 hours
# Prostate disease-BPH per previous history
Continue finasteride, alfuzosin or equivalent
# Neuropathy-likely diabetic
On gabapentin
# Hyperlipidemia-continue statin
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
GFR over 60 now
NO flank pain
# Adjustment disorder with anxiety and depression
# Bilateral trochanteric bursitis-hips
DDD-lumbar
# Insomnia -Melatonin
# IBS with constipation and diarrhea
# Diverticulosis
# Verdugo's esophagus- Add PPI
# DVT prophylaxis-Lovenox
# DNR status per discussion with patient.� Son was on the speaker phone
Total time spent to see the patient, examine the patient on the floor, review data and lab results, discuss treatment plan with patient, son, , nursing staff around 59 minutes
Anticipated Discharge: 24 - 48 hours
Subjective/Interval History
-
Date of Service: July 22, 2023
No chest pain. No sob
No dizziness
Objective Data
-
Vital Signs:
Vital Signs
Temp Pulse Resp BP Pulse Ox
97.6 F 89 17 142/78 96
07/22/23 07:37 07/22/23 07:37 07/22/23 07:37 07/22/23 07:37 07/22/23 07:37
I&O
07/21/23 07/22/23 07/23/23
06:59 06:59 06:59
Intake Total 840 / 840 600 / 600
Output Total 1700 / 1700 2525 / 2525 1300 / 1300
Balance -860 / -860 -1925 / -1925 -1300 / -1300
[2023-07-22 12:15] LABS: Glucose - Point of Care 234 mg/dl (70-99)
[2023-07-22] MEDS: NOVOLOG FLEXPEN-LOW RESISTANCE 2 UNITS SC ×2 (12:19→17:39)
[2023-07-22 16:22] LABS: Glucose - Point of Care 204 mg/dl (70-99)
--- NOTE | 2023-07-22 16:26 | CM ---
PT OT and PMR evaluated patient and agree to [facility] .
MD indicated pt will be medically ready for dc tomorrow.
Appears pt weaned to room air POX 92%.
Lombardo cath remains.
Spoke with Maria Luz at [facility] bed available for patient tomorrow after auth
Spoke with Rosie Webb Clinical needs to be faxed to Dr Lopez at [phone] for auth .
PLAN to [facility] after auth
[2023-07-22] MEDS: PRANDIN 0.5 MG PO (17:40)
[2023-07-22] MEDS: FLOMAX 0.400000000000000022 MG PO (17:40)
[2023-07-22] MEDS: LIPITOR 40 MG PO (17:40)
[2023-07-22] MEDS: LOVENOX 40 MG SC (17:40)
[2023-07-22] MEDS: PROSCAR 5 MG PO (20:17)
[2023-07-22 21:29] LABS: Glucose - Point of Care 194 mg/dl (70-99)
[2023-07-23 07:30] VITALS: BP 137/73
[2023-07-23 07:46] LABS: Glucose - Point of Care 179 mg/dl (70-99)
[2023-07-23] MEDS: NOVOLOG FLEXPEN-LOW RESISTANCE 1 UNITS SC (07:46)
[2023-07-23] MEDS: NEURONTIN 200 MG PO (07:48)
[2023-07-23] MEDS: VITAMIN D3 (cholecalciferol) 25 MCG PO (07:48)
[2023-07-23] MEDS: LOW STRENGTH ASPIRIN 81 MG PO (07:48)
[2023-07-23] MEDS: TOPROL XL 25 MG PO (07:48)
[2023-07-23] MEDS: PLETAL 100 MG PO (07:49)
[2023-07-23] MEDS: PLAVIX 75 MG PO (07:49)
--- NOTE | 2023-07-23 08:57 | CM ---
Addendum entered by Venus Troncoso 07/23/23 11:39:
Patient auth in place now per Valorie at [facility]. Auth number [id number] updates to Cindy . CM left VM for Clark Priyank and await confirmation of bed and report number.
Addendum entered by Venus Troncoso 07/23/23 10:27:
Patient does not yet have auth per insurance, CM updated physician.
Original Note:
Clinical sent to [facility] for auth to [facility]. CM will call to follow up.
--- NOTE | 2023-07-23 09:59 | W.DCSUMMARY ---
Discharge Summary
Discharge Data
Date of Admission: 07/19/23
Date of Discharge: 07/23/23
-
Pending Results: No
Hospital Course
88 years old male presented with dizziness, general weakness, left-sided weakness and left facial droop. �He woke up around 3 AM with sensation of spinning and transient left sided weakness. The dizziness was worse with sitting up and not
associated nausea, emesis, ear pain, sensory, visual or speech deficits.� Patient stated that he had similar symptoms in the past lasted for several hours.� Mr. Palomino admitted to chronic bilateral tinnitus as well as hearing impairment.� He
recalled history of stroke with residual mild right hemiparesis.�He took aspirin sometimes.� Patient had history of transient ischemic attacks in the past. He had history of peripheral vascular disease. Patient was evaluated by neurologist. He
had the brain imaging studies including magnetic resonance imaging that showed small acute infarct in the right middle cerebellar appendical. Stroke etiology very likely due to small vessel disease given the location of infarct, existing risk
factors of hypertension and diabetes, absence of large vessel atherosclerosis on scan angiogram of the head and neck. Parotid mass seen on imaging brought possibility of acquired hypercoagulability of malignancy. Patient was started on dual
antiplatelet therapy with aspirin and Plavix for 3 months and then to continue with aspirin only. He continued to struggle with vertigo mostly upon standing/ambulation. He did not have orthostatic hypotension. Meclizine for symptomatic control of
dizziness from the stroke. Patient was noted to have elevated troponin. He did not have chest pain. He was diagnosed with non-ST elevation myocardial infarction in setting of acute stroke. Patient was evaluated by storage brine worker and recommendation
to continue medical treatment in post stroke period. Consideration of ischemic evaluation as an outpatient with his primary storage brine worker. Echocardiogram showed left ventricular ejection fraction 55%, mild septal/apical hypokinesis. Patient had low
cholesterol LDL 44 and no changes recommended to his statin therapy. Primary storage brine worker Dr. Igor Edmonds was updated. Patient had history of difficulty urination. Patient was noticed to be lethargic at times. Gabapentin dose was decreased. He
suffered from acute urinary retention. Lombardo catheter was placed. He was advised to have voiding trial after starting physical activity. Patient remained hemodynamically stable. He was evaluated by physical therapy and recommended acute rehab
placement. Patient was advised to follow-up with his primary care doctor for further management of the parotid mass. Patient was discharged in a stable condition
Physical Exam
General: Conversant
HEENT: Other (left parotid mass)
Respiratory: Clear
Cardiac: S1/S2, Regular Rhythm and Murmur (Systolic murmur at apex)
GI: Soft and Non Tender
: Positive Lombardo, clear urine.
Skin: Warm
No Lombardo, no hematuria
Psych: no agitation
Neuro: Awake and Alert; No No Motor Deficits (Mild weakness noted on the left side), patient complained of dizziness at times upon standing.
Total discharge time spent to see the patient, examine the patient on the floor, review data and lab results, discuss discharge plan with patient, nursing staff around 65 minutes
Discharge Plan
-
Patient Disposition: Acute Rehab Facility
Discharge Diagnosis/Procedures: Small acute infarct in the right middle cerebellar peduncle
None ST elevation [place]
Peripheral vascular disease
Acute urinary retention, voiding trial after starting physical activity and rehab.
Primary hypertension. Low blood pressure. Stopped enalapril and amlodipine for now. Continue with metoprolol
Mild hyponatremia
Large mass in the left parotid gland, for outpatient follow-up.
Diabetes
Diabetic neuropathy, decreased dose of gabapentin due to lethargy.
Diet: Diabetic, Carb Controlled
Referrals:
Igor Edmonds [Non-Admitting Privileges] - (Dr. Edmonds's office will call you with an appt to be seen.)
Magdalena Noland MD [Family Provider] -
Richardson Villatoro MD [Active] - in one month
Prescriptions:
New
acetaminophen 325 mg Tablet
650 mg PO Q4HPRN PRN (Reason: RIVERA, mild pain, or temp >100.4F) Qty: 10 0RF
meclizine 12.5 mg Tablet
12.5 mg PO Q8HPRN PRN (Reason: Vertigo/dizzy) Qty: 10 0RF
gabapentin 100 mg Capsule
200 mg PO TID Qty: 30 0RF
Continued
cilostazol 100 mg Tablet
100 mg PO BID
clopidogrel 75 mg Tablet
75 mg PO DAILY
repaglinide 0.5 mg Tablet
1 mg PO DAILY@1700
Rx Instructions:
takes 30 mins before dinner
finasteride 5 mg Tablet
5 mg PO HS
rosuvastatin 10 mg Tablet
10 mg PO HS
alfuzosin 10 mg Tablet Extended Release 24 Hr
10 mg PO QPM
metformin 500 mg Tablet Extended Release 24 Hr
500 mg PO BID@0800,1700
aspirin 81 mg Capsule
81 mg PO DAILY
pantoprazole [Protonix] 40 mg Tablet,Delayed Release (Dr/Ec)
40 mg PO DAILY
metoprolol succinate 25 mg tablet extended release 24 hr
25 mg PO DAILY
dicyclomine 10 mg Capsule
10 mg PO Q6H PRN (Reason: irritable bowel)
cyanocobalamin (vitamin B-12) 1,000 mcg Tablet
1,000 mcg PO DAILY
cholecalciferol (vitamin D3) 25 mcg (1,000 unit) Tablet
25 mcg PO DAILY
Discontinued
enalapril maleate 20 mg Tablet
20 mg PO BID
amlodipine 5 mg Tablet
5 mg PO DAILY
gabapentin 300 mg capsule
600 mg PO TID
Probiotic 3 billion cell Capsule
3,000 mmu cells PO DAILY
Discharge Orders:
Discharge Patient (As Directed); Ordered 07/23/23
Ordered By: Nic Crawford
[2023-07-23 11:59] LABS: Glucose - Point of Care 216 mg/dl (70-99)
[2023-07-23] MEDS: NOVOLOG FLEXPEN-LOW RESISTANCE 2 UNITS SC (12:31)
== END 2023-07-23 13:41 | DRG 64 ==
LOC: 3 WEST ACU 08:25
PROVIDERS: Nurse Practitioner Family; ADMITTING PHYSICIAN Hospitalist; ATTENDING PHYSICIAN Internal Medicine; CONSULT PHYSICIAN Internal Medicine Cardiovascular Disease; CONSULT PHYSICIAN Physical Medicine & Rehabilitation; CONSULT PHYSICIAN Psychiatry & Neurology Neurology; EMERGENCY PHYSICIAN Emergency Medicine; FAMILY PHYSICIAN Internal Medicine Geriatric Medicine
DX: I63.9 Cerebral infarction, unspecified (principal); I21.4 Non-ST elevation (NSTEMI) myocardial infarction; E87.1 Hypo-osmolality and hyponatremia; I69.351 Hemiplegia and hemiparesis following cerebral infarction affecting right dominant side; I95.9 Hypotension, unspecified; R29.810 Facial weakness; I65.29 Occlusion and stenosis of unspecified carotid artery; I12.9 Hypertensive chronic kidney disease with stage 1 through stage 4 chronic kidney disease, or unspecified chronic kidney disease; N18.9 Chronic kidney disease, unspecified; I45.10 Unspecified right bundle-branch block; E11.40 Type 2 diabetes mellitus with diabetic neuropathy, unspecified; E11.22 Type 2 diabetes mellitus with diabetic chronic kidney disease; E11.51 Type 2 diabetes mellitus with diabetic peripheral angiopathy without gangrene; F43.23 Adjustment disorder with mixed anxiety and depressed mood; G47.00 Insomnia, unspecified; I25.10 Atherosclerotic heart disease of native coronary artery without angina pectoris; K58.2 Mixed irritable bowel syndrome; E78.00 Pure hypercholesterolemia, unspecified; K57.90 Diverticulosis of intestine, part unspecified, without perforation or abscess without bleeding; K22.70 Barrett's esophagus without dysplasia; I89.0 Lymphedema, not elsewhere classified; I48.91 Unspecified atrial fibrillation; N40.1 Benign prostatic hyperplasia with lower urinary tract symptoms; R33.8 Other retention of urine; D37.030 Neoplasm of uncertain behavior of the parotid salivary glands; E55.9 Vitamin D deficiency, unspecified; R26.2 Difficulty in walking, not elsewhere classified; M51.36 Other intervertebral disc degeneration, lumbar region; M70.61 Trochanteric bursitis, right hip; M70.62 Trochanteric bursitis, left hip; H91.90 Unspecified hearing loss, unspecified ear; H93.13 Tinnitus, bilateral; Z66 Do not resuscitate; Z79.82 Long term (current) use of aspirin; Z79.02 Long term (current) use of antithrombotics/antiplatelets; Z87.891 Personal history of nicotine dependence; Z82.49 Family history of ischemic heart disease and other diseases of the circulatory system; Z79.84 Long term (current) use of oral hypoglycemic drugs
CPT/HCPCS: 70450; 70496; 70498; 70551; 80048; 80061; 81003; 82962; 83036; 84484; 85025; 85027; 92507; 92523; 92526; 92610; 93005; 93306; 97110; 97116; 97129; 97163; 97167; 97530; 99291; Q9950; Q9967